=== PATIENT | female | born 1945 | race American Indian/Alaskan Native ===

== ENCOUNTER 2016-06-04 08:10 | Emergency (ER) | payer MEDICARE ==
[2016-06-04 09:24] LABS: Basophils % (Auto) 0.4 % (0.0-1.8); Eosinophils % (Auto) 2.3 % (0.0-4.3); Hematocrit 43.8 % (30.3-42.9); Hemoglobin 14.5 gm/dl (10.1-14.3); Mean Corpuscular HGB Conc 33 % (30-34); Mean Corpuscular Hemoglobin 30 pg (28-32); Mean Corpuscular Volume 90 fl (79-97); Platelet Count 156 K/mm3 (140-440); Red Blood Count 4.86 M/mm3 (3.65-5.03); Red Cell Distribution Width 13.6 % (13.2-15.2); White Blood Count 8.1 K/mm3 (4.5-11.0)
[2016-06-04 09:37] LABS: Alanine Aminotransferase 31 units/L (7-56); Albumin 3.9 g/dL (3.9-5); Alkaline Phosphatase 80 units/L (35-129); Anion Gap 20 mmol/L; Blood Urea Nitrogen 14 mg/dL (7-17); Carbon Dioxide 21 mmol/L (22-30); Chloride 101.8 mmol/L (98-107); Glucose 164 mg/dL (65-100); Lipase 61 units/L (13-60); Potassium 3.8 mmol/L (3.6-5.0); Sodium 139 mmol/L (137-145); Total Protein 7.9 g/dL (6.3-8.2)
[2016-06-04 09:50] LABS: Bilirubin,Urine NEG (Negative); Blood,Urine NEG (Negative); Ketones,Urine 20 mg/dL (Negative); Leukocyte Esterase,Urine SM (Negative); Mucus,Urine FEW /HPF; Nitrite,Urine NEG (Negative); Protein,Urine <15 mg/dL mg/dL (Negative); Urobilinogen,Urine < 2.0 mg/dL (<2.0)
[2016-06-04] MEDS ORDERED: MORPHINE IV ONE (12:33)
[2016-06-04] MEDS ORDERED: ZOFRAN IV ONE (12:33)
[2016-06-04] MEDS ORDERED: NACL 0.9% 1000 ML 1,000 ML IV ONE (12:33)
--- NOTE | 2016-06-04 12:38 | Emergency Department Report ---
ED Abdominal Pain HPI - General Chief Complaint: Abdominal Pain Stated Complaint: SEVERE ABD PAIN Time Seen by Provider: 06/04/16 12:28 Source: patient Mode of arrival: Ambulatory Limitations: No Limitations - History of Present Illness Initial Comments: 71-year-old female with a past medical history previous CVA, diabetes, GERD, multiple abdominal surgeries including hysterectomy presents to the hospital complains of abdominal pain since June 02. Pain is generalized, cramping and sharp, intermittent. A certificate intensity. Worse with palpation and with oral intake. Patient has associated nausea with mild vomiting reported yesterday. Patient has decreased by mouth intake secondary to symptoms. She only had a very small bowel movement yesterday and reports problems with chronic constipation. No reports of fever or dysuria. Patient also history of hernia repair 2 but cannot specify which hernias were repaired. PMD: Dr. Fair - Related Data Previous Rx's Medication Instructions Recorded Last Taken Type Ciprofloxacin HCl [Ciprofloxacin 500 mg PO Q12HR #14 tab 06/04/16 Unknown Rx TAB] Docusate Sodium [Colace] 100 mg PO BID PRN #20 capsule 06/04/16 Unknown Rx Promethazine [Phenergan TAB] 25 mg PO Q6HR PRN #20 tab 06/04/16 Unknown Rx metroNIDAZOLE [Flagyl] 500 mg PO Q8HR 7 Days 06/04/16 Unknown Rx traMADol [Ultram 50 MG tab] 50 mg PO Q6HR PRN #20 tablet 06/04/16 Unknown Rx Allergies Allergy/AdvReac Type Severity Reaction Status Date / Time metformin HCl AdvReac HALLUCINATI Verified 06/04/16 08:56 [From Glucophage] ONS ED Review of Systems ROS: Stated complaint: SEVERE ABD PAIN Other details as noted in HPI Comment: All other systems reviewed and negative Other: Constitutional: No fevers chills Eyes: No eye pain visual changes ENT: No ear pain or throat pain Neck: Denies pain Respiratory: Denies cough wheezing shortness of breath Cardiovascular: Denies chest pain, palpitations, syncope GI: as per hpi : Denies dysuria, urinary frequency, or urgency Musculoskeletal: Denies back pain, joint swelling Skin: Denies rash, lesions, erythema Neurologic: Denies headache, numbness, weakness Psychiatric: Denies suicidal ideation, hallucinations ED Past Medical Hx - Past Medical History Hx CVA: Yes (CVA 01-28-13) Hx Diabetes: Yes (Insulin) Hx GERD: Yes Hx Kidney Stones: Yes - Surgical History Additional Surgical History: . HERNIA REPAIR X 2. HYSTERECTOMY - Social History Smoking Status: Never Smoker Substance Use Type: None - Medications Home Medications: Home Medications Medication Instructions Recorded Confirmed Last Taken Type Ciprofloxacin HCl [Ciprofloxacin 500 mg PO Q12HR #14 tab 06/04/16 Unknown Rx TAB] Docusate Sodium [Colace] 100 mg PO BID PRN #20 capsule 06/04/16 Unknown Rx Promethazine [Phenergan TAB] 25 mg PO Q6HR PRN #20 tab 06/04/16 Unknown Rx metroNIDAZOLE [Flagyl] 500 mg PO Q8HR 7 Days 06/04/16 Unknown Rx traMADol [Ultram 50 MG tab] 50 mg PO Q6HR PRN #20 tablet 06/04/16 Unknown Rx ED Physical Exam - General Limitations: No Limitations - Other Other exam information: General: No limitations, patient is alert in no acute distress Head exam: Atraumatic, normocephalic Eyes exam: Normal appearance, pupils equal reactive to light, extraocular movements intact ENT: Moist mucous membrane, normal oropharynx Neck exam: Normal inspection, full range of motion, no meningismus nontender Respiratory exam: Clear to auscultation bilateral, no wheezes, rales, crackles Cardiovascular: Normal rate and rhythm, normal heart sounds Abdomen: Soft, nondistended, increased bowel signs, generalized tenderness greatest at the left lower and right lower quadrant. No rebound or guarding Extremity: Full range of motion normal inspection no deformity Back: Normal Inspection, full range of motion, no tenderness Neurologic: Alert, oriented x3, cranial nerves intact, no motor or sensory deficit Psychiatric: normal affect, normal mood Skin: Warm, dry, intact ED Course Vital Signs 06/04/16 06/04/16 06/04/16 08:49 12:45 13:01 Temperature 99.2 F Pulse Rate 104 H 89 Respiratory 17 16 18 Rate Blood Pressure 134/76 Blood Pressure 112/60 [Right] O2 Sat by Pulse 98 99 Oximetry 06/04/16 13:52 Temperature 98.3 F Pulse Rate 89 Respiratory 18 Rate Blood Pressure Blood Pressure 115/68 [Right] O2 Sat by Pulse 97 Oximetry - Reevaluation(s) Reevaluation #1: 06/04/16 12:37 Morphine, Zofran, normal saline and CT ordered Reevaluation #2: 06/04/16 14:32 Pt feeling better with ED treatment - Consultations Consultation #1: 06/04/16 14:32 case d/w Dr quirino RAMESH. Rec cipro/flagyl Consultation #2: 06/04/16 14:59 Dr Fair informed of pt update and informed pt will f/u in office ED Medical Decision Making - Lab Data Result diagrams: 06/04/16 09:04 06/04/16 09:04 Lab Results 06/04/16 06/04/16 06/04/16 Range/Units 08:58 09:04 09:04 WBC 8.1 (4.5-11.0) K/mm3 RBC 4.86 (3.65-5.03) M/mm3 Hgb 14.5 H (10.1-14.3) gm/dl Hct 43.8 H (30.3-42.9) % MCV 90 (79-97) fl MCH 30 (28-32) pg MCHC 33 (30-34) % RDW 13.6 (13.2-15.2) % Plt Count 156 (140-440) K/mm3 Lymph % (Auto) 15.4 (13.4-35.0) % [place] % (Auto) 10.6 H (0.0-7.3) % Eos % (Auto) 2.3 (0.0-4.3) % Baso % (Auto) 0.4 (0.0-1.8) % Lymph # 1.3 (1.2-5.4) K/mm3 [place] # 0.9 H (0.0-0.8) K/mm3 Eos # 0.2 (0.0-0.4) K/mm3 Baso # 0.0 (0.0-0.1) K/mm3 Seg Neutrophils % 71.3 H (40.0-70.0) % Seg Neutrophils # 5.8 (1.8-7.7) K/mm3 Sodium 139 (137-145) mmol/L Potassium 3.8 (3.6-5.0) mmol/L Chloride 101.8 (98-107) mmol/L Carbon Dioxide 21 L (22-30) mmol/L Anion Gap 20 mmol/L BUN 14 (7-17) mg/dL Creatinine 0.8 (0.7-1.2) mg/dL Estimated GFR > 60 ml/min BUN/Creatinine Ratio 17.50 % Glucose 164 H (65-100) mg/dL POC Glucose 162 H (70-105) Calcium 9.0 (8.4-10.2) mg/dL Total Bilirubin 1.0 (0.1-1.2) mg/dL AST 39 (5-40) units/L ALT 31 (7-56) units/L Alkaline Phosphatase 80 (35-129) units/L Total Protein 7.9 (6.3-8.2) g/dL Albumin 3.9 (3.9-5) g/dL Albumin/Globulin Ratio 1.0 % Lipase 61 H (13-60) units/L Urine Color (Yellow) Urine Turbidity (Clear) Urine pH (5.0-7.0) Ur Specific [place] (1.003-1.030) Urine Protein (Negative) mg/dL Urine Glucose (UA) (Negative) mg/dL Urine Ketones (Negative) mg/dL Urine Blood (Negative) Urine Nitrite (Negative) Urine Bilirubin (Negative) Urine Urobilinogen (<2.0) mg/dL Ur Leukocyte Esterase (Negative) Urine WBC (Auto) (0.0-6.0) /HPF Urine RBC (Auto) (0.0-6.0) /HPF U Epithel Cells (Auto) (0-13.0) /HPF Urine Mucus /HPF Urine Yeast (Budding) /HPF 06/04/16 Range/Units 09:34 WBC (4.5-11.0) K/mm3 RBC (3.65-5.03) M/mm3 Hgb (10.1-14.3) gm/dl Hct (30.3-42.9) % MCV (79-97) fl MCH (28-32) pg MCHC (30-34) % RDW (13.2-15.2) % Plt Count (140-440) K/mm3 Lymph % (Auto) (13.4-35.0) % [place] % (Auto) (0.0-7.3) % Eos % (Auto) (0.0-4.3) % Baso % (Auto) (0.0-1.8) % Lymph # (1.2-5.4) K/mm3 [place] # (0.0-0.8) K/mm3 Eos # (0.0-0.4) K/mm3 Baso # (0.0-0.1) K/mm3 Seg Neutrophils % (40.0-70.0) % Seg Neutrophils # (1.8-7.7) K/mm3 Sodium (137-145) mmol/L Potassium (3.6-5.0) mmol/L Chloride (98-107) mmol/L Carbon Dioxide (22-30) mmol/L Anion Gap mmol/L BUN (7-17) mg/dL Creatinine (0.7-1.2) mg/dL Estimated GFR ml/min BUN/Creatinine Ratio % Glucose (65-100) mg/dL POC Glucose (70-105) Calcium (8.4-10.2) mg/dL Total Bilirubin (0.1-1.2) mg/dL AST (5-40) units/L ALT (7-56) units/L Alkaline Phosphatase (35-129) units/L Total Protein (6.3-8.2) g/dL Albumin (3.9-5) g/dL Albumin/Globulin Ratio % Lipase (13-60) units/L Urine Color Yellow (Yellow) Urine Turbidity Clear (Clear) Urine pH 5.0 (5.0-7.0) Ur Specific [place] 1.030 (1.003-1.030) Urine Protein <15 mg/dl (Negative) mg/dL Urine Glucose (UA) 150 (Negative) mg/dL Urine Ketones 20 (Negative) mg/dL Urine Blood Neg (Negative) Urine Nitrite Neg (Negative) Urine Bilirubin Neg (Negative) Urine Urobilinogen < 2.0 (<2.0) mg/dL Ur Leukocyte Esterase Sm (Negative) Urine WBC (Auto) 7.0 H (0.0-6.0) /HPF Urine RBC (Auto) 4.0 (0.0-6.0) /HPF U Epithel Cells (Auto) 5.0 (0-13.0) /HPF Urine Mucus Few /HPF Urine Yeast (Budding) Few /HPF - Radiology Data Radiology results: report reviewed (ct abd pelvis IV: findings of nonspecific colitis) - Medical Decision Making No surgical emergency identified. Patient was discharged home with antibiotics and symptomatic treatment since she is tolerating by mouth he does not have significant leukocytosis or fever. - Differential Diagnosis diverticulitis, obstruction, appendicitis, gastritis, constipation Critical Care Time: No Critical care attestation.: If time is entered above; I have spent that time in minutes in the direct care of this critically ill patient, excluding procedure time. ED Disposition Clinical Impression: Nonspecific colitis Abdominal pain Qualifiers: Abdominal location: generalized Qualified Code(s): R10.84 - Generalized abdominal pain Disposition: DISCHARGED TO HOME OR SELFCARE Is pt being admited?: No Does the pt Need Aspirin: No Condition: Stable Instructions: Abdominal Pain (ED), Infectious Colitis (ED) Additional Instructions: Take the medication as prescribed. Return if symptoms worsen as indicated on your discharge instructions Prescriptions: Ciprofloxacin HCl [Ciprofloxacin TAB] 500 mg PO Q12HR #14 tab Docusate Sodium [Colace] 100 mg PO BID PRN #20 capsule PRN Reason: Constipation Promethazine [Phenergan TAB] 25 mg PO Q6HR PRN #20 tab PRN Reason: Nausea metroNIDAZOLE [Flagyl] 500 mg PO Q8HR 7 Days traMADol [Ultram 50 MG tab] 50 mg PO Q6HR PRN #20 tablet PRN Reason: Pain Referrals: MIA FAIR MD [Primary Care Provider] - 2-3 Days Time of Disposition: 15:14
[2016-06-04] MEDS ORDERED: NACL ONE (13:22)
[2016-06-04 13:53] VITALS: BP 115/68
--- NOTE | 2016-06-04 14:06 | Cat Scan Report ---
CT SCAN OF THE ABDOMEN AND PELVIS WITH CONTRAST: HISTORY: Abdominal pain. TECHNIQUE: Helical CT in 1.25mm intervals following IV contrast. Sagittal and coronal reconstructions. FINDINGS: There is moderate circumferential thickening of the ascending colon and transverse colon. This has the appearance of a nonspecific colitis. The stomach, small bowel loops, appendix and distal colon are unremarkable. Scattered diverticula are noted. Normal liver, biliary system, pancreas, spleen, kidneys and left adrenal gland. A well marginated 2.1 cm enhancing nodule is noted in the right adrenal gland. This is unchanged since 07/14/12 CT chest. Hysterectomy changes are noted. No adnexal cyst or mass. No ascites. The aorta is normal caliber. Heart size is normal. The visualized lung bases are clear. No acute bony abnormality. IMPRESSION: Findings consistent with a nonspecific colitis.
[2016-06-04] MEDS ORDERED: LEVAQUIN PO ONE (14:30)
[2016-06-04] MEDS ORDERED: FLAGYL PO ONE (14:30)
== END 2016-06-04 15:20 | disposition home or self-care (01) ==
LOC: ED 08:10
DX: K52.89 Other specified noninfective gastroenteritis and colitis (principal); I63.9 Cerebral infarction, unspecified; K21.9 Gastro-esophageal reflux disease without esophagitis; E11.9 Type 2 diabetes mellitus without complications; Z79.82 Long term (current) use of aspirin; Z88.8 Allergy status to other drugs, medicaments and biological substances
CPT/HCPCS: 36415; 74177; 80053; 81001; 82962; 83690; 85025; 96361; 96374; 96375; 99284; J2270; J2405; J7030; Q9967

== ENCOUNTER 2016-06-06 10:44 | Inpatient (IN) | payer MEDICARE ==
[2016-06-06] MEDS ORDERED: D50W (25GM) IV PRN (11:36)
[2016-06-06] MEDS: PROTONIX IV SCH ×2 (13:44→21:01)
--- NOTE | 2016-06-06 13:57 | Ultrasound Report ---
Sonogram right upper quadrant: History: Abdominal pain. Findings: Aortic diameter 1.8 cm. The gallbladder wall thickness 2.7 mm. Sludge in the gallbladder. No calculi. No pericholecystic fluid. Common bile duct diameter 5 mm. No intrahepatic duct dilatation. Fatty liver. Right kidney 9.2 x 5 x 5.5 cm. Cortical thickness is 1.4 cm. No mass. No hydronephrosis. Pancreas appears normal. Impression: Fatty liver. Sludge in the gallbladder.
[2016-06-06 14:15] LABS: Basophils % (Auto) 0.4 % (0.0-1.8); Eosinophils % (Auto) 7.2 % (0.0-4.3); Hematocrit 40.5 % (30.3-42.9); Hemoglobin 13.4 gm/dl (10.1-14.3); Mean Corpuscular HGB Conc 33 % (30-34); Mean Corpuscular Hemoglobin 30 pg (28-32); Mean Corpuscular Volume 91 fl (79-97); Platelet Count 159 K/mm3 (140-440); Red Blood Count 4.43 M/mm3 (3.65-5.03); Red Cell Distribution Width 13.8 % (13.2-15.2); White Blood Count 6.2 K/mm3 (4.5-11.0)
[2016-06-06] MEDS: LOVENOX SUB-Q SCH (15:06)
[2016-06-06 16:02] LABS: Amylase 81 units/L (27-131); Lipase 67 units/L (13-60)
[2016-06-06 16:06] LABS: Alanine Aminotransferase 26 units/L (7-56); Albumin 3.8 g/dL (3.9-5); Albumin/Globulin Ratio 1.3 %; Alkaline Phosphatase 71 units/L (35-129); BUN/Creatinine Ratio 13.75; Bilirubin,Total 0.5 mg/dL (0.1-1.2); Blood Urea Nitrogen 11 mg/dL (7-17); Calcium 8.7 mg/dL (8.4-10.2); Carbon Dioxide 23 mmol/L (22-30); Chloride 104.3 mmol/L (98-107); Glucose 136 mg/dL (65-100); Potassium 3.9 mmol/L (3.6-5.0); Sodium 142 mmol/L (137-145); Total Protein 6.7 g/dL (6.3-8.2)
[2016-06-06 16:19] LABS: Anion Gap 19 mmol/L
--- NOTE | 2016-06-06 17:22 | History and Physical Report ---
History of Present Illness Date of examination: 06/06/16 Date of admission: 06/06/16 11:35 Chief complaint: Abdominal pain, nausea vomiting, fever and chills History of present illness: Patient is 71-year-old lady was a history of diabetes mellitus, cerebrovascular accident with right hemiparesis who started having abdominal discomfort one week ago. It became progressively worse 3 days ago. Came to the emergency department on 06/04/[address] scan of the abdomen and pelvis were remarkable for nonspecific colitis. Patient had episodes of nausea vomiting 3 since onset of symptoms. Had low-grade fever. Had initial diarrhea but now constipated. Last bowel movement was 3 days ago. Patient presented to the office today with worsening abdominal pain. There was tenderness more in the epigastrium and right upper quadrant. Had low-grade fever of 99. The pt was directly admitted to the hospital. Gallbladder ultrasound shows gallbladder sludge. Blood sugar was minimally elevated on this admission. Past History Past Medical History: hypertension, hyperlipidemia, stroke Past Surgical History: denies: No surgical history Social history: denies: smoking, alcohol abuse, prescription drug abuse, IV drug use Family history: denies: no significant family history Medications and Allergies Allergies Allergy/AdvReac Type Severity Reaction Status Date / Time metformin HCl AdvReac HALLUCINATI Verified 06/04/16 08:56 [From Glucophage] ONS Home Medications Medication Instructions Recorded Confirmed Last Taken Type Ciprofloxacin HCl [Ciprofloxacin 500 mg PO Q12HR #14 tab 06/04/16 06/06/16 07: 00 Rx TAB] Docusate Sodium [Colace] 100 mg PO BID PRN #20 capsule 06/04/16 06/06/16 07:00 Rx Promethazine [Phenergan TAB] 25 mg PO Q6HR PRN #20 tab 06/04/16 06/06/16 07:00 Rx metroNIDAZOLE [Flagyl] 500 mg PO Q8HR 7 Days 06/04/16 06/06/16 07:00 Rx traMADol [Ultram 50 MG tab] 50 mg PO Q6HR PRN #20 tablet 06/04/16 06/06/1606/06 07:00 Rx Canagliflozin (Nf) [Invokana (Nf)] 06/06/16 06/04/16 13:00 History Cilostazol [Pletal] 06/06/16 06/05/16 07:00 History Rosuvastatin (Nf) [Crestor] 06/06/16 06/05/16 21:00 History Active Meds: Active Medications Dextrose (D50w (25gm)) 50 ml IV PRN PRN PRN Reason: Hypoglycemia Enoxaparin Sodium (Lovenox) 40 mg SUB-Q QDAY [facility] Last Admin: 06/06/16 15:06 Dose: 40 mg Insulin Aspart (Novolog) 0 units SUB-Q ACHS [facility] PRN Reason: Protocol Pantoprazole Sodium (Protonix) 40 mg IV BID [facility] Stop: 06/09/16 11:59 Last Admin: 06/06/16 13:44 Dose: 40 mg Review of Systems Constitutional: no weight loss, no weight gain, no anorexia Ears, nose, mouth and throat: no ear pain, no ear discharge Cardiovascular: no chest pain, no orthopnea, no palpitations, no rapid/ irregular heart beat Respiratory: no cough, no cough with sputum, no excessive sputum, no hemoptysis Gastrointestinal: abdominal pain, nausea, vomiting, constipation Musculoskeletal: no neck stiffness, no neck pain, no shooting arm pain, no arm numbness/tingling Integumentary: no rash, no pruritis, no redness Neurological: no head injury, no transient paralysis, no paralysis, no weakness , no parathesias, no numbness Psychiatric: hallucinations, no anxiety, no memory loss, no change in sleep habits, no insomnia Endocrine: no cold intolerance, no heat intolerance, no polyphagia, no excessive thirst, no polydipsia Hematologic/Lymphatic: no easy bruising, no easy bleeding Allergic/Immunologic: no urticaria, no allergic rhinitis Exam - Constitutional Vitals: Temp Pulse Resp BP Pulse Ox 99.1 F 82 18 119/63 06/06/16 16:54 06/06/16 16:54 06/06/16 16:54 06/06/16 16:54 General appearance: Present: no acute distress, well-nourished - EENT Eyes: Present: PERRL ENT: hearing intact, clear oral mucosa - Neck Neck: Present: supple, normal ROM - Respiratory Respiratory effort: normal Respiratory: bilateral: CTA - Cardiovascular Heart Sounds: Present: S1 & S2. Absent: rub, click - Extremities Extremities: pulses symmetrical, No edema Peripheral Pulses: within normal limits - Abdominal General gastrointestinal: Present: soft, tender, normal bowel sounds Female genitourinary: Present: normal - Integumentary Integumentary: Present: clear, warm, dry - Musculoskeletal Musculoskeletal: gait normal, strength equal bilaterally - Psychiatric Psychiatric: appropriate mood/affect, intact judgment & insight - Neurologic Neurologic: CNII-XII intact, moves all extremities Results - Labs CBC & Chem 7: 06/06/16 13:45 06/06/16 14:46 Labs: Abnormal lab results 06/06/16 06/06/16 06/06/16 Range/Units 13:45 14:46 14:46 [place] % (Auto) 11.8 H (0.0-7.3) % Eos % (Auto) 7.2 H (0.0-4.3) % Glucose 136 H (65-100) mg/dL Albumin 3.8 L (3.9-5) g/dL Lipase 67 H (13-60) units/L Assessment and Plan - Patient Problems (1) Abdominal pain Diagnosis Date: 06/06/16 Current Visit: No Status: Acute Qualifiers: Abdominal location: generalized Qualified Code(s): R10.84 - Generalized abdominal pain Plan to address problem: Epigastric pain, likely from gallbladder disease as patient has a gallbladder sludge (2) Nonspecific colitis Diagnosis Date: 06/06/16 Current Visit: No Status: Acute Plan to address problem: Is started. However we'll place the patient on nothing by mouth obtain GI consult. Commence patient on IV 2. IV Levaquin and by mouth Flagyl (3) Gallbladder sludge Diagnosis Date: 06/06/16 Current Visit: Yes Status: Acute Plan to address problem: Pulmonary ultrasound patient has gallbladder sludge. This may be responsible for upper abdominal pain (4) Diabetes 1.5, managed as type 2 Diagnosis Date: 06/06/16 Current Visit: Yes Status: Acute Plan to address problem: Sliding-scale insulin. ADA diet when fully commenced on oral diet
[2016-06-06] MEDS: LEVAQUIN 500MG/100ML 100 ML IV SCH (21:00)
[2016-06-06] MEDS: FLAGYL PO SCH (21:01)
[2016-06-06] MEDS: NOVOLOG SUB-Q SCH (22:03)
[2016-06-07 05:23] LABS: Basophils % (Auto) 0.5 % (0.0-1.8); Eosinophils % (Auto) 7.5 % (0.0-4.3); Hematocrit 35.7 % (30.3-42.9); Hemoglobin 11.9 gm/dl (10.1-14.3); Mean Corpuscular HGB Conc 33 % (30-34); Mean Corpuscular Hemoglobin 30 pg (28-32); Mean Corpuscular Volume 89 fl (79-97); Platelet Count 147 K/mm3 (140-440); Red Cell Distribution Width 13.4 % (13.2-15.2); White Blood Count 5.3 K/mm3 (4.5-11.0)
[2016-06-07 05:40] LABS: Alanine Aminotransferase 26 units/L (7-56); Albumin 3.3 g/dL (3.9-5); Albumin/Globulin Ratio 1.2 %; Alkaline Phosphatase 62 units/L (35-129); Anion Gap 17 mmol/L; BUN/Creatinine Ratio 12.85; Bilirubin,Total 0.5 mg/dL (0.1-1.2); Blood Urea Nitrogen 9 mg/dL (7-17); Calcium 8.1 mg/dL (8.4-10.2); Carbon Dioxide 23 mmol/L (22-30); Chloride 106.9 mmol/L (98-107); Glucose 98 mg/dL (65-100); Potassium 3.4 mmol/L (3.6-5.0); Sodium 143 mmol/L (137-145); Total Protein 6.1 g/dL (6.3-8.2)
[2016-06-07] MEDS: FLAGYL PO SCH ×3 (05:40→22:17)
[2016-06-07] MEDS: D5NS0.3 1,000 ML IV SCH ×2 (07:58→22:15)
[2016-06-07] MEDS: NOVOLOG SUB-Q SCH ×3 (07:59→22:18)
--- NOTE | 2016-06-07 09:09 | Progress Note ---
Assessment and Plan 1. Acute epigastric abdominal pain: Clear liquids only. iv Protonic 2. Nonspecific Colitis per CT of 06/04/16: IV levquin and po flagyl. GI consult 3. Gallbalder sludge: amanda get HIDA scan. Surgical consult 4. T2DM: SSI. Consitend carbohydrate diet 5. DVT Ppx: with lovenox - Patient Problems (1) Abdominal pain Diagnosis Date: 06/06/16 Current Visit: No Status: Acute Qualifiers: Abdominal location: generalized Qualified Code(s): R10.84 - Generalized abdominal pain (2) Nonspecific colitis Diagnosis Date: 06/06/16 Current Visit: No Status: Acute (3) Gallbladder sludge Diagnosis Date: 06/06/16 Current Visit: Yes Status: Acute (4) Diabetes 1.5, managed as type 2 Diagnosis Date: 06/06/16 Current Visit: Yes Status: Acute Subjective Date of service: 06/07/16 Principal diagnosis: acute abdominal pain, cholocyctitis Interval history: abdominal pain getting better Objective - Constitutional Vitals: Vital Signs - 12hr 06/07/16 06/07/16 00:00 08:00 Temperature 98.6 F 98.1 F Pulse Rate [ 86 74 Right] Respiratory 18 20 Rate Blood Pressure 124/62 126/66 [Left Arm] O2 Sat by Pulse 97 Oximetry General appearance: Present: no acute distress, well-nourished - EENT Eyes: PERRL, EOM intact ENT: hearing intact, clear oral mucosa Ears: bilateral: normal - Neck Neck: supple, normal ROM - Respiratory Respiratory effort: normal Respiratory: bilateral: CTA - Breasts Breasts: normal - Cardiovascular Rhythm: regular Heart Sounds: Present: S1 & S2. Absent: gallop, rub Extremities: pulses intact, No edema, normal color, Full ROM - Gastrointestinal General gastrointestinal: Present: soft, tender, non-distended, normal bowel sounds - Genitourinary Female genitourinary: normal - Integumentary Integumentary: clear, warm, dry - Musculoskeletal Musculoskeletal: 1, strength equal bilaterally - Neurologic Neurologic: moves all extremities - Psychiatric Psychiatric: memory intact, appropriate mood/affect, intact judgment & insight - Labs CBC & Chem 7: 06/07/16 04:45 06/07/16 04:45 Labs: Abnormal lab results 06/06/16 06/06/16 06/06/16 Range/Units 13:45 14:46 14:46 [place] % (Auto) 11.8 H (0.0-7.3) % Eos % (Auto) 7.2 H (0.0-4.3) % Potassium (3.6-5.0) mmol/L Glucose 136 H (65-100) mg/dL POC Glucose (70-105) Calcium (8.4-10.2) mg/dL Total Protein (6.3-8.2) g/dL Albumin 3.8 L (3.9-5) g/dL Lipase 67 H (13-60) units/L 06/06/16 06/07/16 06/07/16 Range/Units 21:00 04:45 04:45 [place] % (Auto) 15.8 H (0.0-7.3) % Eos % (Auto) 7.5 H (0.0-4.3) % Potassium 3.4 L (3.6-5.0) mmol/L Glucose (65-100) mg/dL POC Glucose 132 H (70-105) Calcium 8.1 L (8.4-10.2) mg/dL Total Protein 6.1 L (6.3-8.2) g/dL Albumin 3.3 L (3.9-5) g/dL Lipase (13-60) units/L
--- NOTE | 2016-06-07 09:15 | Admit Criteria Form ---
Admission Criteria Documentation: ABDOMINAL PAIN Clinical Indications for Admission to Inpatient Care (Place 'X' for any and all applicable criteria): Admission is indicated for ANY ONE of the following(1)(2)(3)(4)(5): [X]I. Inpatient admission required rather than observation care (Also use Abdominal Pain: Observation Care, as appropriate) because of ANY ONE of the following: [X ]a) Severe pain requiring acute inpatient management [X ]b) Identification of etiology/finding that requires inpatient care (eg, aortic dissection, free air) [ ]c) Absent bowel sounds with complete ileus(6) [ ]d) Suspected toxic megacolon [ ]e) Severe electrolyte abnormalities requiring inpatient care [ ]f) High fever or infection requiring inpatient admission as indicated by ANY ONE of following(7)(8): [ ] i) Appropriate outpatient or observational care antimicrobial treatment unavailable, not effective, or not feasible [ ] ii) Documented bacteremia [ ] iii) Temperature > 104.9 degrees F (oral) [ ] iv) T >103.1 F (oral) or < 96.8 F(rectal) that does not respond to all emergency treatment measures [ ]g) Signs of intestinal obstruction [B] [ ]h) Hemodynamic instability [ ]i) IV fluid to replace significant ongoing losses (greater than 3 L/m2 per day) (12)(13) [ ]j) Percutaneous or open drainage (eg, abscess, biliary tract ) procedures [ ]k) Parenteral nutrition regimen that must be implemented on inpatient basis [ ]l) Other condition,treatment or monitoring requiring inpatient admission. [ ]II. Peritoneal signs present [ ]III. Surgery needed that cannot be performed on an ambulatory basis. [ ]IV. Evaluation requires patient to not eat or drink for extended period ( eg, more than 24 hours). [ ]V. Contraindications and/or Inappropriate clinical situations for Observational Care in patients with abdominal pain, when ANY ONE of the following is required: [ ]a) Thorough evaluation is required to prevent catastrophic events due to delays in diagnosing (e.g.Mesenteric ischemia) 1,3 [ ]b) Patient with severe pathology or with chronic symptoms unlikely to improve in the ED stay (3) [ ]. General contraindications and/or Inappropriate clinical situations for Observational Care in patients with abdominal pain, when ANY ONE of the following is required: [ ]a) Prediction of prolongation of LOS based on ANY ONE of the following may be considered as a contraindication for observational care 2, 3, 4, 5, 6, 7, 8, 9, 10, 11 [ ]i) Age > 65 yrs. [ ]ii) Patient arriving by ambulance [ ]iii) Patient with high acuity [ ]iv) Patient requiring vital sign monitoring [ ]v) Patient on IV medication [ ]b) Systolic blood pressures 180mmHg 3,12 [ ]c) Patient with altered mental status including delirium and other alteration of consciousness, (3) [ ]d) Patient whose discharge disposition will be to a intermediate home or rehabilitation home should not be managed in Emergency Department Observation Unit. CMS rule requires 3 days hospital stay before such placement.3,13 [ ]e) Patient with failure to thrive due to broad array of etiologies 3,16,17 [ ]f) Inability to ambulate 3,14 Extended stay beyond goal length of stay may be needed for(2)(3): [ ]a) Persistent abdominal pain with suspected intra-abdominal process [ ]b) Diagnosed condition requiring continued stay (e.g., pancreatitis, complicated diverticulitis) [ ]c) Surgery (e.g., colectomy) The original [facility] content created by [employer] has been revised. The portions of the content which have been revised are identified through the use of italic text or in bold, and [facility] has neither reviewed nor approved the modified material.All other unmodified content is copyright [facility]. Please see references footnoted in the original [facility] edition 2016 Admission Criteria Met: Yes
[2016-06-07] MEDS: LEVAQUIN 500MG/100ML 100 ML IV SCH (09:56)
[2016-06-07] MEDS: PROTONIX IV SCH ×2 (09:56→22:17)
[2016-06-07] MEDS: LOVENOX SUB-Q SCH (09:57)
--- NOTE | 2016-06-07 11:12 | Consultation ---
History of Present Illness Consult date: 06/07/16 Reason for consult: other (Gallbladder sludge) Chief complaint: Abdominal pain. - History of present illness History of present illness: 8 digital female admitted to the hospital because of abdominal pain. A CT of the abdomen showed ascending colitis. The patient reports that she has been having some abdominal pain nausea vomiting diarrhea on and off for the last 2 weeks. The gallbladder ultrasound also showed sludge in this is the reason for our consultation. Past History Past Medical History: hypertension, hyperlipidemia, stroke Past Surgical History: , hysterectomy, Other (incisional herniorrhaphy. ) Social history: denies: smoking, alcohol abuse, prescription drug abuse, IV drug use Family history: denies: no significant family history Medications and Allergies Allergies Allergy/AdvReac Type Severity Reaction Status Date / Time metformin HCl AdvReac HALLUCINATI Verified 06/04/16 08:56 [From Glucophage] ONS Home Medications Medication Instructions Recorded Confirmed Last Taken Type Ciprofloxacin HCl [Ciprofloxacin 500 mg PO Q12HR #14 tab 06/04/16 06/06/16 07: 00 Rx TAB] Docusate Sodium [Colace] 100 mg PO BID PRN #20 capsule 06/04/16 06/06/16 07:00 Rx Promethazine [Phenergan TAB] 25 mg PO Q6HR PRN #20 tab 06/04/16 06/06/16 07:00 Rx metroNIDAZOLE [Flagyl] 500 mg PO Q8HR 7 Days 06/04/16 06/06/16 07:00 Rx traMADol [Ultram 50 MG tab] 50 mg PO Q6HR PRN #20 tablet 06/04/16 06/06/1606/06 07:00 Rx Canagliflozin (Nf) [Invokana (Nf)] 06/06/16 06/04/16 13:00 History Cilostazol [Pletal] 06/06/16 06/05/16 07:00 History Rosuvastatin (Nf) [Crestor] 06/06/16 06/05/16 21:00 History Active Meds: Active Medications Dextrose (D50w (25gm)) 50 ml IV PRN PRN PRN Reason: Hypoglycemia Enoxaparin Sodium (Lovenox) 40 mg SUB-Q QDAY [place] Last Admin: 06/07/16 09:57 Dose: 40 mg Dextrose/Sodium Chloride (D5ns0.3) 1,000 mls @ 100 mls/hr IV DIRECT [facility] Last Admin: 06/07/16 07:58 Dose: 100 mls/hr Levofloxacin/Dextrose (Levaquin 500mg/100ml) 100 mls @ 100 mls/hr IV Q24HR [place] PRN Reason: Protocol Last Admin: 06/07/16 09:56 Dose: 100 mls/hr Potassium Chloride (Kcl 10meq/100ml) 100 mls @ 100 mls/hr IV Q1H [facility] Stop: 06/07/16 14:59 Insulin Aspart (Novolog) 0 units SUB-Q ACHS [place] PRN Reason: Protocol Last Admin: 06/07/16 07:59 Dose: Not Given Metronidazole (Flagyl) 500 mg PO Q8HR [facility] Last Admin: 06/07/16 05:40 Dose: 500 mg Morphine Sulfate (Morphine) 2 mg IV Q4H PRN PRN Reason: Pain, Moderate (4-6) Pantoprazole Sodium (Protonix) 40 mg IV BID [facility] Stop: 06/09/16 11:59 Last Admin: 06/07/16 09:56 Dose: 40 mg Review of Systems All systems: negative (present complaint) Exam Vital Signs Temp Pulse Resp BP 99.1 F 82 18 119/63 06/06/16 16:54 06/06/16 16:54 06/06/16 16:54 06/06/16 16:54 - General physical appearance Positive: well developed, well nourished, no distress, obese - Eyes Positive: PERRL, normal occular movement - ENT Positive: normal mucosa, no hearing loss, no congestion - Neck Positive: no masses, no bruits, trachea midline, no venous distension - Respiratory Positive: normal expansion, normal respiratory effort, clear to auscultation - Cardiovascular Rhythm: regular Heart Sounds: Present: S1 & S2. Absent: rub, click - Extremities Extremities: no ischemia, No edema - Breasts Breasts: deferred - Abdomen Abdomen: Present: soft, tender (right hypochondrium), bowel sounds normal - Genitourinary Female Genitourinary: deferred - Integumentary no rash, no growths, no abnormal pigmentation - Neurologic Neurologic: alert and oriented to time, place and person - Musculoskeletal normal gait, normal posture Results - Labs 06/07/16 04:45 06/07/16 04:45 Abnormal lab results 06/06/16 06/06/16 06/06/16 Range/Units 13:45 14:46 14:46 Crane % (Auto) 11.8 H (0.0-7.3) % Eos % (Auto) 7.2 H (0.0-4.3) % Potassium (3.6-5.0) mmol/L Glucose 136 H (65-100) mg/dL POC Glucose (70-105) Calcium (8.4-10.2) mg/dL Total Protein (6.3-8.2) g/dL Albumin 3.8 L (3.9-5) g/dL Lipase 67 H (13-60) units/L 06/06/16 06/07/16 06/07/16 Range/Units 21:00 04:45 04:45 Crane % (Auto) 15.8 H (0.0-7.3) % Eos % (Auto) 7.5 H (0.0-4.3) % Potassium 3.4 L (3.6-5.0) mmol/L Glucose (65-100) mg/dL POC Glucose 132 H (70-105) Calcium 8.1 L (8.4-10.2) mg/dL Total Protein 6.1 L (6.3-8.2) g/dL Albumin 3.3 L (3.9-5) g/dL Lipase (13-60) units/L Diabetes panel 06/06/16 06/07/16 Range/Units 14:46 04:45 Sodium 142 143 (137-145) mmol/L Potassium 3.9 3.4 L (3.6-5.0) mmol/L Chloride 104.3 106.9 (98-107) mmol/L Carbon Dioxide 23 23 (22-30) mmol/L BUN 11 9 (7-17) mg/dL Creatinine 0.8 0.7 (0.7-1.2) mg/dL Glucose 136 H 98 (65-100) mg/dL Calcium 8.7 8.1 L (8.4-10.2) mg/dL AST 30 28 (5-40) units/L ALT 26 26 (7-56) units/L Alkaline Phosphatase 71 62 (35-129) units/L Total Protein 6.7 6.1 L (6.3-8.2) g/dL Albumin 3.8 L 3.3 L (3.9-5) g/dL Calcium panel 06/06/16 06/07/16 Range/Units 14:46 04:45 Calcium 8.7 8.1 L (8.4-10.2) mg/dL Albumin 3.8 L 3.3 L (3.9-5) g/dL Pituitary panel 06/06/16 06/07/16 Range/Units 14:46 04:45 Sodium 142 143 (137-145) mmol/L Potassium 3.9 3.4 L (3.6-5.0) mmol/L Chloride 104.3 106.9 (98-107) mmol/L Carbon Dioxide 23 23 (22-30) mmol/L BUN 11 9 (7-17) mg/dL Creatinine 0.8 0.7 (0.7-1.2) mg/dL Glucose 136 H 98 (65-100) mg/dL Calcium 8.7 8.1 L (8.4-10.2) mg/dL Adrenal panel 06/06/16 06/07/16 Range/Units 14:46 04:45 Sodium 142 143 (137-145) mmol/L Potassium 3.9 3.4 L (3.6-5.0) mmol/L Chloride 104.3 106.9 (98-107) mmol/L Carbon Dioxide 23 23 (22-30) mmol/L BUN 11 9 (7-17) mg/dL Creatinine 0.8 0.7 (0.7-1.2) mg/dL Glucose 136 H 98 (65-100) mg/dL Calcium 8.7 8.1 L (8.4-10.2) mg/dL Total Bilirubin 0.5 0.5 (0.1-1.2) mg/dL AST 30 28 (5-40) units/L ALT 26 26 (7-56) units/L Alkaline Phosphatase 71 62 (35-129) units/L Total Protein 6.7 6.1 L (6.3-8.2) g/dL Albumin 3.8 L 3.3 L (3.9-5) g/dL - Imaging CT scan - abdomen: report reviewed, image reviewed US - abdomen: report reviewed, image reviewed Assessment and Plan Impression: #1. Ascending colitis. #2. Gallbladder sludge but I do not think this is the cause of her pain. Recommendations: Agree with a GI consult. Medical management of the ascending colitis. A HIDA scan is not absolutely necessary at this time but will help to rule out cystic duct obstruction which is very, very doubtful.
[2016-06-07] MEDS: KCL 10MEQ/100ML 100 ML IV SCH ×4 (11:49→16:49)
[2016-06-08] MEDS: FLAGYL PO SCH ×3 (06:29→22:36)
[2016-06-08 07:04] LABS: Basophils % (Auto) 0.7 % (0.0-1.8); Eosinophils % (Auto) 6.9 % (0.0-4.3); Hematocrit 35.7 % (30.3-42.9); Mean Corpuscular HGB Conc 34 % (30-34); Mean Corpuscular Hemoglobin 30 pg (28-32); Mean Corpuscular Volume 89 fl (79-97); Platelet Count 139 K/mm3 (140-440); Red Blood Count 4.03 M/mm3 (3.65-5.03); Red Cell Distribution Width 13.5 % (13.2-15.2); White Blood Count 4.1 K/mm3 (4.5-11.0)
[2016-06-08 07:06] LABS: Alanine Aminotransferase 29 units/L (7-56); Albumin 3.3 g/dL (3.9-5); Albumin/Globulin Ratio 1.1 %; Alkaline Phosphatase 62 units/L (35-129); Anion Gap 15 mmol/L; BUN/Creatinine Ratio 7.14; Bilirubin,Total 0.5 mg/dL (0.1-1.2); Blood Urea Nitrogen 5 mg/dL (7-17); Calcium 8.5 mg/dL (8.4-10.2); Carbon Dioxide 22 mmol/L (22-30); Chloride 108.8 mmol/L (98-107); Glucose 186 mg/dL (65-100); Potassium 3.8 mmol/L (3.6-5.0); Sodium 142 mmol/L (137-145); Total Protein 6.3 g/dL (6.3-8.2)
[2016-06-08] MEDS: NOVOLOG SUB-Q SCH ×6 (07:45→16:30)
--- NOTE | 2016-06-08 08:19 | Gastroenterology Consultation ---
<JOSE L ORTEGA NUBIA - Last Filed: 06/08/16 08:20> History of Present Illness - Reason for Consult Consult date: 06/08/16 colitis Requesting physician: MIA FAIR - History of Present Illness Ms. Marie is a 71 y/o female admitted with abdominal pain. She reports over the last 10 days she has had intermittent N/V/D, now resolved. Her last BM was 5 days ago and she has had no diarrhea in over 1 week. She denies melena, hematochezia, or hematemesis. Per CT reports from 06/04/16, she is noted to have some nonspecific colitis. WBC WNL. She is currently tolerating a clear liquid diet and pain is improved. She is being seen by surgery for abdominal US that is remarkable for sludge in the GB. PMH significant for DM, previous CVA and constipation Past History Past Medical History: diabetes, hypertension, hyperlipidemia, stroke Past Surgical History: , hysterectomy, Other (incisional herniorrhaphy. ) Social history: denies: smoking, alcohol abuse, prescription drug abuse, IV drug use Family history: denies: no significant family history Medications and Allergies Allergies Allergy/AdvReac Type Severity Reaction Status Date / Time metformin HCl AdvReac HALLUCINATI Verified 06/04/16 08:56 [From Glucophage] ONS Home Medications Medication Instructions Recorded Confirmed Last Taken Type Ciprofloxacin HCl [Ciprofloxacin 500 mg PO Q12HR #14 tab 06/04/16 06/06/16 07: 00 Rx TAB] Docusate Sodium [Colace] 100 mg PO BID PRN #20 capsule 06/04/16 06/06/16 07:00 Rx Promethazine [Phenergan TAB] 25 mg PO Q6HR PRN #20 tab 06/04/16 06/06/16 07:00 Rx RX: traMADol [Ultram 50 MG tab] 50 mg PO Q6HR PRN #20 tablet 06/04/16 06/06/16 06/06/16 07:00 Rx metroNIDAZOLE [Flagyl] 500 mg PO Q8HR 7 Days 06/04/16 06/06/16 07:00 Rx Canagliflozin (Nf) [Invokana (Nf)] 06/06/16 06/04/16 13:00 History Cilostazol [Pletal] 06/06/16 06/05/16 07:00 History Rosuvastatin (Nf) [Crestor] 06/06/16 06/05/16 21:00 History Active Meds: Active Medications Dextrose (D50w (25gm)) 50 ml IV PRN PRN PRN Reason: Hypoglycemia Enoxaparin Sodium (Lovenox) 40 mg SUB-Q QDAY [facility] Last Admin: 06/07/16 09:57 Dose: 40 mg Dextrose/Sodium Chloride (D5ns0.3) 1,000 mls @ 100 mls/hr IV DIRECT [facility] Last Admin: 06/07/16 22:15 Dose: 100 mls/hr Levofloxacin/Dextrose (Levaquin 500mg/100ml) 100 mls @ 100 mls/hr IV Q24HR [place] PRN Reason: Protocol Last Admin: 06/07/16 09:56 Dose: 100 mls/hr Insulin Aspart (Novolog) 0 units SUB-Q ACHS [place] PRN Reason: Protocol Last Admin: 06/07/16 22:18 Dose: Not Given Metronidazole (Flagyl) 500 mg PO Q8HR [facility] Last Admin: 06/08/16 06:29 Dose: 500 mg Morphine Sulfate (Morphine) 2 mg IV Q4H PRN PRN Reason: Pain, Moderate (4-6) Pantoprazole Sodium (Protonix) 40 mg PO BID [facility] Review of Systems - Review of Systems All systems: negative Constitutional: weakness Gastrointestinal: nausea, vomiting, diarrhea Exam - Constitutional Vital Signs: Temp Pulse Resp BP Pulse Ox 98.2 F 88 22 148/64 99 06/07/16 22:00 06/07/16 22:00 06/07/16 22:00 06/07/16 22:00 06/07/16 22:00 General appearance: no acute distress, obese - EENT Eyes: EOM intact ENT: hearing intact - Neck Neck: supple - Respiratory Respiratory: bilateral: CTA - Cardiovascular Rhythm: regular Heart Sounds: Present: S1 & S2 Extremities: pulses intact - Gastrointestinal General gastrointestinal: Present: soft, tender (mild TTP throughout) - Integumentary Integumentary: Present: warm, dry - Neurologic Neurological: alert and oriented x3 - Psychiatric Psychiatric: appropriate mood/affect - Labs CBC & Chem 7: 06/08/16 05:43 06/08/16 05:43 Lab Results: Laboratory Results - last 24 hr 06/07/16 06/07/16 06/07/16 11:35 16:21 21:39 WBC RBC Hgb Hct MCV MCH MCHC RDW Plt Count Lymph % (Auto) Bent % (Auto) Eos % (Auto) Baso % (Auto) Lymph # Bent # Eos # Baso # Seg Neutrophils % Seg Neutrophils # Sodium Potassium Chloride Carbon Dioxide Anion Gap BUN Creatinine Estimated GFR BUN/Creatinine Ratio Glucose POC Glucose 154 H 113 H 126 H Calcium Total Bilirubin AST ALT Alkaline Phosphatase Total Protein Albumin Albumin/Globulin Ratio 06/08/16 06/08/16 06/08/16 05:43 05:43 06:34 WBC 4.1 L RBC 4.03 Hgb 12.0 Hct 35.7 MCV 89 MCH 30 MCHC 34 RDW 13.5 Plt Count 139 L Lymph % (Auto) 32.2 Bent % (Auto) 11.8 H Eos % (Auto) 6.9 H Baso % (Auto) 0.7 Lymph # 1.3 Bent # 0.5 Eos # 0.3 Baso # 0.0 Seg Neutrophils % 48.4 Seg Neutrophils # 2.0 Sodium 142 Potassium 3.8 Chloride 108.8 H Carbon Dioxide 22 Anion Gap 15 BUN 5 L Creatinine 0.7 Estimated GFR > 60 BUN/Creatinine Ratio 7.14 Glucose 186 H POC Glucose 201 H Calcium 8.5 Total Bilirubin 0.5 AST 37 ALT 29 Alkaline Phosphatase 62 Total Protein 6.3 Albumin 3.3 L Albumin/Globulin Ratio 1.1 Assessment and Plan 1. Colitis -Improved -Abdominal pain associated with previous N/V/D, CT on 06/04/16 remarkable for nonspecific colitis. -Patient reports she has no further N/V/D and her pain is improved. -Currently on Levaquin/Flagyl -Tolerating a clear liquid diet, advance to fulls for lunch if patient continues to tolerate -WBC WNL -Abdominal US c/w GB sludge-per surgery -Patient should complete a round to ABX for colitis (7-10days, change to PO once tolerating full liquids). Likely etiology is infectious vs ischemic with age (favor infectious) -Supportive care <MARIA LUISA NORTON - Last Filed: 06/09/16 08:20> Medications and Allergies Active Meds: Active Medications Dextrose (D50w (25gm)) 50 ml IV PRN PRN PRN Reason: Hypoglycemia Enoxaparin Sodium (Lovenox) 40 mg SUB-Q QDAY [facility] Last Admin: 06/08/16 10:01 Dose: 40 mg Insulin Aspart (Novolog) 0 units SUB-Q ACHS [place] PRN Reason: Protocol Last Admin: 06/09/16 07:50 Dose: Not Given Levofloxacin (Levaquin) 500 mg PO Q24HR [place] Metronidazole (Flagyl) 500 mg PO Q8HR [facility] Last Admin: 06/09/16 07:40 Dose: 500 mg Morphine Sulfate (Morphine) 2 mg IV Q4H PRN PRN Reason: Pain, Moderate (4-6) Last Admin: 06/09/16 07:51 Dose: 2 mg Pantoprazole Sodium (Protonix) 40 mg PO BID [facility] Last Admin: 06/08/16 22:36 Dose: 40 mg Exam - Constitutional Vital Signs: Temp Pulse Resp BP Pulse Ox 98.3 F 78 18 157/74 98 06/09/16 07:05 06/09/16 07:05 06/09/16 07:05 06/09/16 07:05 06/09/16 07:05 - Labs CBC & Chem 7: 06/08/16 05:43 06/08/16 05:43 Lab Results: Laboratory Results - last 24 hr 06/08/16 06/08/16 06/08/16 12:00 16:37 22:24 POC Glucose 96 130 H 93 06/09/16 05:23 POC Glucose 119 H Assessment and Plan Patient seen and examined on 06/08. Agree with note by Carolyn Ortega. Patient with abdominal pain and CT showing right sided colitis. ddx includes ischemia vs infectious, vs possibly other etiology. Symptoms improving. Recommend CTA of abdomen if this is indeed right sided ischemic colitis. Cont abx for 7 days. Will need colonoscopy (can be done as outpatient) to assess healing/rule out other etiologies.
--- NOTE | 2016-06-08 08:58 | Progress Note ---
Assessment and Plan 1. Acute epigastric abdominal pain: Clear liquids only. iv Protonic 2. Infectious Colitis 06/04/16: IV levquin and po flagyl. GI consult 3. Gallbalder sludge: Surgeons's input appreciated. 4. T2DM: optimize glycemic control though pt is on clear liquid. will d/c D51/2 NS. continue with SSI and Consistent carbohydrate diet 5. DVT Ppx: with lovenox - Patient Problems (1) Abdominal pain Diagnosis Date: 06/06/16 Current Visit: No Status: Acute Qualifiers: Abdominal location: generalized Qualified Code(s): R10.84 - Generalized abdominal pain (2) Nonspecific colitis Diagnosis Date: 06/06/16 Current Visit: No Status: Acute (3) Gallbladder sludge Diagnosis Date: 06/06/16 Current Visit: Yes Status: Acute (4) Diabetes 1.5, managed as type 2 Diagnosis Date: 06/06/16 Current Visit: Yes Status: Acute Subjective Date of service: 06/08/16 Principal diagnosis: acute abdominal pain, cholocyctitis Interval history: Abdominal pain getting better. No more n/v Objective - Constitutional Vitals: Vital Signs - 12hr 06/07/16 06/08/16 22:00 08:00 Temperature 98.2 F 98.4 F Pulse Rate [ 88 90 Right] Respiratory 22 20 Rate Blood Pressure 148/64 142/68 [Left Arm] O2 Sat by Pulse 99 98 Oximetry General appearance: Present: no acute distress, well-nourished - EENT Eyes: PERRL, EOM intact ENT: hearing intact, clear oral mucosa Ears: bilateral: normal - Neck Neck: supple, normal ROM - Respiratory Respiratory effort: normal Respiratory: bilateral: CTA - Breasts Breasts: normal - Cardiovascular Rhythm: regular Heart Sounds: Present: S1 & S2. Absent: gallop, rub Extremities: pulses intact, No edema, normal color, Full ROM - Gastrointestinal General gastrointestinal: Present: soft, tender, non-distended (tenderness decreasing), normal bowel sounds - Genitourinary Female genitourinary: normal - Integumentary Integumentary: clear, warm, dry - Musculoskeletal Musculoskeletal: 1, strength equal bilaterally - Neurologic Neurologic: moves all extremities - Psychiatric Psychiatric: memory intact, appropriate mood/affect, intact judgment & insight - Labs CBC & Chem 7: 06/08/16 05:43 06/08/16 05:43 Labs: Abnormal lab results 06/07/16 06/07/16 06/07/16 Range/Units 11:35 16:21 21:39 WBC (4.5-11.0) K/mm3 Plt Count (140-440) K/mm3 [place] % (Auto) (0.0-7.3) % Eos % (Auto) (0.0-4.3) % Chloride (98-107) mmol/L BUN (7-17) mg/dL Glucose (65-100) mg/dL POC Glucose 154 H 113 H 126 H (70-105) Albumin (3.9-5) g/dL 06/08/16 06/08/16 06/08/16 Range/Units 05:43 05:43 06:34 WBC 4.1 L (4.5-11.0) K/mm3 Plt Count 139 L (140-440) K/mm3 [place] % (Auto) 11.8 H (0.0-7.3) % Eos % (Auto) 6.9 H (0.0-4.3) % Chloride 108.8 H (98-107) mmol/L BUN 5 L (7-17) mg/dL Glucose 186 H (65-100) mg/dL POC Glucose 201 H (70-105) Albumin 3.3 L (3.9-5) g/dL
[2016-06-08] MEDS: PROTONIX PO SCH ×2 (10:01→22:36)
[2016-06-08] MEDS: LOVENOX SUB-Q SCH (10:01)
[2016-06-08] MEDS: LEVAQUIN 500MG/100ML 100 ML IV SCH (10:02)
[2016-06-08] MEDS: MORPHINE IV PRN (22:36)
[2016-06-09] MEDS: FLAGYL PO SCH (07:40)
[2016-06-09] MEDS: NOVOLOG SUB-Q SCH ×2 (07:50→12:17)
[2016-06-09] MEDS: MORPHINE IV PRN (07:51)
[2016-06-09 08:03] VITALS: BP 157/74
[2016-06-09] MEDS: LOVENOX SUB-Q SCH (09:37)
[2016-06-09] MEDS: PROTONIX PO SCH (09:38)
[2016-06-09] MEDS ORDERED: LEVAQUIN PO SCH (10:00)
--- NOTE | 2016-06-09 11:55 | Discharge Summary ---
Providers - Providers Date of Admission: 06/06/16 11:35 Date of discharge: 06/09/16 Attending physician: MIA FAIR 06/07/16 09:13 Consult to Physician [CONS] Routine Consulting Provider: NICKIE LOPEZ Reason For Exam: Gall bladder sludge Place consult to:: Jose Notified:: PLEASE CALL MD IN AM Was contact made?: Yes Comment:: said to place patient on list 06/07/16 09:14 Consult to Physician [CONS] Routine Consulting Provider: ESA WALLS Reason For Exam: nonspecific colitis Place consult to:: Naye Notified:: PLEASE CALL MD IN AM Was contact made?: No Primary care physician: MIA FAIR Hospitalization Reason for admission: abdominal pain Condition: Good Pertinent studies: CT scan of the abdomen consistent with colitis Abdominal ultrasound showing gallbladder sludge no cholelithiasis Procedures: CT abdomen Abdominal ultrasound Hospital course: 18-year-old female admitted by Dr. Dr. Fair following abdominal pain and constipation ongoing for the past week prior to presentation. Patient was also having intermittent nausea vomiting. Patient was admitted with the initial diagnosis of abdominal pain to rule out colitis and possible cholelithiasis. CT scan of the abdomen done on the showed ascending colitis. No mass was seen on abdominal CT scan. Patient also had abdominal ultrasound which was consistent with gallbladder sludge but no stone in the gallbladder. Patient was subsequently admitted and started on IV antibiotics with Levaquin and Flagyl. Surgery consultation was obtained and patient was seen by Dr.German Lopez will agree with the diagnosis of colitis and suggested continuation of medical treatment with no indication for surgery at time of evaluation. Patient was also evaluated by GI with assessment of colitis with continuation of medication and subsequent plan for outpatient colonoscopy when patient is more stable. Patient was initially on clear liquid diet which she tolerated she was advanced to full liquid diet which she is tolerating and also now been advanced to full ADA diabetes diet. Patient was subsequently be discharged home to continue with oral antibiotics for a total of 2 weeks and follow-up with Dr. Dr. Fair as outpatient and also with the belt picker as outpatient. Disposition: DISCHARGED TO HOME OR SELFCARE Core Measure Documentation - Palliative Care Palliative Care/ Comfort Measures: Not Applicable - Core Measures Any of the following diagnoses?: none Exam - Physical Exam Narrative exam: GENERAL: Patient is not in any acute distress not been no jaundice no cyanosis HEENT: Mucous membrane is moist pharynx is clear with no exudate or hemorrhage no oral lesion NECK: No JVD, no thyroid enlargement and no lymphadenopathy. CHEST/LUNGS: Good air exchange bilaterally, no wheeze, no rales and no rhonchi. No chest wall tenderness, percussion is normal, symmetrical chest wall. HEART/CARDIOVASCULAR: Regular rate and rhythm, S1 and S2 only, no murmur. ABDOMEN: [Abdomen is soft, nondistended, vague tenderness in the left lower quadrant area no guarding no rebound, no masses palpable per abdomen active bowel sounds no abdominal audible bruit. Liver spleen and kidneys are not palpably enlarged. SKIN: Warm and dry, no rash. NEURO: Awake, alert, oriented x3, speech normal. Power 5/5 in all the extremities. EXTREMITIES: No pedal edema, good peripheral pulses, no finger or toe clubbing. - Constitutional Vitals: Temp Pulse Resp BP Pulse Ox 98.3 F 78 18 157/74 98 06/09/16 07:05 06/09/16 07:05 06/09/16 07:05 06/09/16 07:05 06/09/16 07:05 Plan Activity: advance as tolerated Weight Bearing Status: Full Weight Bearing Diet: low carbohydrate
== END 2016-06-09 14:11 | disposition home or self-care (01) | DRG 392 ==
LOC: UNDOADMIN 10:44 → 3A 10:44
PROVIDERS: ADMIT Family Medicine; ATTEND Family Medicine
DX: A09 Infectious gastroenteritis and colitis, unspecified (principal); K82.9 Disease of gallbladder, unspecified; E11.9 Type 2 diabetes mellitus without complications; E78.5 Hyperlipidemia, unspecified; K81.9 Cholecystitis, unspecified; Z86.73 Personal history of transient ischemic attack (TIA), and cerebral infarction without residual deficits; Z88.8 Allergy status to other drugs, medicaments and biological substances; Z79.899 Other long term (current) drug therapy; Z90.710 Acquired absence of both cervix and uterus
CPT/HCPCS: 36415; 76705; 80053; 82150; 82962; 83690; 85025; C9113; J1650; J1815; J1956; J2270; J3480

== ENCOUNTER 2016-09-24 19:31 | Emergency (ER) | payer MEDICARE ==
--- NOTE | 2016-09-25 06:25 | Emergency Department Report ---
ED General Adult HPI - General Chief complaint: Abdominal Pain Stated complaint: ABD/CHEST PAIN Time Seen by Provider: 09/25/16 06:23 Source: patient Mode of arrival: Ambulatory Limitations: No Limitations - History of Present Illness Initial comments: The patient has a variety of complaints. She is principally complaining of a nonproductive cough. She states that she has urinary flow with cough and some dysuria. He complains of rhinitis but no purulent drainage. She's not had a fever or chills. She is not complaining of any dyspnea. She had some vague symptoms at triage "not getting enough air". However she has no difficulty breathing whatsoever now. She denies chest pain leg swelling or pain she says a recent travel. She has occasional crampy abdominal discomfort. -: days(s) Location: abdomen Radiation: non-radiation Quality: other (crampy) Consistency: intermittent Improves with: none Worsens with: none Associated Symptoms: denies other symptoms (except as above indicated) - Related Data Home Medications Medication Instructions Recorded Confirmed Last Taken Canagliflozin (Nf) [Invokana (Nf)] 100 mg PO DAILY 06/06/16 09/25/16 09/24/16 Insulin Aspart [Novolog Flexpen] 16 unit SQ AC 09/25/16 09/25/16 09/24/16 Insulin Glargine,Hum.rec.anlog 40 units SQ QHS 09/25/16 09/25/16 09/24/16 [Lantus Solostar] Lisinopril [Zestril] 20 mg PO QDAY 09/25/16 09/25/16 09/24/16 amLODIPine [Norvasc] 5 mg PO DAILY 09/25/16 09/25/16 09/24/16 Previous Rx's Medication Instructions Recorded Last Taken Type Sulfamethoxazole/Trimethoprim 1 each PO BID #14 tablet 09/25/16 Unknown Rx [Bactrim DS TAB] traMADol [Ultram] 50 mg PO Q6HR PRN #10 tablet 09/25/16 Unknown Rx Allergies Allergy/AdvReac Type Severity Reaction Status Date / Time metformin HCl AdvReac HALLUCINATI Verified 06/04/16 08:56 [From Glucophage] ONS ED Review of Systems ROS: Stated complaint: ABD/CHEST PAIN Other details as noted in HPI Constitutional: denies: chills, fever Eyes: denies: eye pain, eye discharge, vision change ENT: as per HPI. denies: throat pain Respiratory: cough. denies: shortness of breath, wheezing Cardiovascular: denies: chest pain, palpitations Endocrine: no symptoms reported Gastrointestinal: as per HPI, abdominal pain. denies: nausea, vomiting, diarrhea Genitourinary: denies: urgency, dysuria, discharge Musculoskeletal: denies: back pain, joint swelling, arthralgia Skin: denies: rash, lesions Neurological: denies: headache, weakness, paresthesias Psychiatric: denies: anxiety, depression Hematological/Lymphatic: denies: easy bleeding, easy bruising ED Past Medical Hx - Past Medical History Previous Medical History?: Yes Hx Hypertension: Yes Hx CVA: Yes (CVA 01-28-13) Hx Diabetes: Yes Hx GERD: Yes Hx Arthritis: Yes Hx Kidney Stones: Yes Hx Asthma: Yes - Surgical History Past Surgical History?: Yes Additional Surgical History: . HERNIA REPAIR X 2. HYSTERECTOMY - Social History Smoking Status: Never Smoker Substance Use Type: None - Medications Home Medications: Home Medications Medication Instructions Recorded Confirmed Last Taken Type Canagliflozin (Nf) [Invokana (Nf)] 100 mg PO DAILY 06/06/16 09/25/16 09/24/16 History Insulin Aspart [Novolog Flexpen] 16 unit SQ AC 09/25/16 09/25/16 09/24/16 History Insulin Glargine,Hum.rec.anlog 40 units SQ QHS 09/25/16 09/25/16 09/24/16 History [Lantus Solostar] Lisinopril [Zestril] 20 mg PO QDAY 09/25/16 09/25/16 09/24/16 History Sulfamethoxazole/Trimethoprim 1 each PO BID #14 tablet 09/25/16 Unknown Rx [Bactrim DS TAB] amLODIPine [Norvasc] 5 mg PO DAILY 09/25/16 09/25/16 09/24/16 History traMADol [Ultram] 50 mg PO Q6HR PRN #10 tablet 09/25/16 Unknown Rx ED Physical Exam - General Limitations: No Limitations General appearance: alert, in no apparent distress - Head Head exam: Present: atraumatic, normocephalic - Eye Eye exam: Present: normal appearance. Absent: scleral icterus - ENT ENT exam: Present: normal exam, mucous membranes moist - Neck Neck exam: Present: normal inspection. Absent: tenderness, meningismus - Respiratory Respiratory exam: Present: normal lung sounds bilaterally. Absent: respiratory distress - Cardiovascular Cardiovascular Exam: Present: regular rate, normal rhythm. Absent: systolic murmur, diastolic murmur, rubs, gallop - GI/Abdominal GI/Abdominal exam: Present: soft, normal bowel sounds. Absent: distended, tenderness, guarding, rebound, rigid - Extremities Exam Extremities exam: Present: normal inspection - Back Exam Back exam: Present: normal inspection. Absent: CVA tenderness (R), CVA tenderness (L) - Neurological Exam Neurological exam: Present: alert, oriented X3, CN II-XII intact. Absent: motor sensory deficit - Psychiatric Psychiatric exam: Present: normal affect, normal mood - Skin Skin exam: Present: warm, dry, intact, normal color. Absent: rash ED Course Vital Signs 09/24/16 09/25/16 09/25/16 19:42 05:30 06:00 Temperature 99 F Pulse Rate 108 H Respiratory 18 Rate Blood Pressure 145/92 130/78 131/76 Blood Pressure [Left] O2 Sat by Pulse 96 95 Oximetry 09/25/16 09/25/16 09/25/16 06:30 06:49 07:28 Temperature 98.9 F Pulse Rate 97 H Respiratory 18 Rate Blood Pressure 128/76 130/78 Blood Pressure 144/53 [Left] O2 Sat by Pulse 97 100 100 Oximetry 09/25/16 09/25/16 09/25/16 07:30 07:39 08:00 Temperature 98.1 F Pulse Rate 90 Respiratory 18 Rate Blood Pressure 140/76 136/78 Blood Pressure 140/76 [Left] O2 Sat by Pulse 100 99 97 Oximetry 09/25/16 09/25/16 09/25/16 08:30 09:00 09:30 Temperature Pulse Rate Respiratory Rate Blood Pressure 140/76 133/80 133/80 Blood Pressure [Left] O2 Sat by Pulse 96 97 Oximetry 09/25/16 10:00 Temperature Pulse Rate Respiratory Rate Blood Pressure 134/72 Blood Pressure [Left] O2 Sat by Pulse Oximetry - Reevaluation(s) Reevaluation #1: Patient was seen resting comfortably in no distress. On reevaluation she was actually sleeping. Upon awakening she really had no specific complaint. She is discharged in stable condition. 09/25/16 10:59 ED Medical Decision Making - Lab Data Result diagrams: 09/25/16 08:12 09/25/16 08:12 Laboratory Results - last 24 hr 09/25/16 09/25/16 09/25/16 08:12 08:12 08:27 WBC 7.2 RBC 4.75 Hgb 14.1 Hct 42.6 MCV 90 MCH 30 MCHC 33 RDW 13.9 Plt Count 165 Lymph % (Auto) 25.3 Tyrrell % (Auto) 10.1 H Eos % (Auto) 7.0 H Baso % (Auto) 0.5 Lymph # 1.8 Tyrrell # 0.7 Eos # 0.5 H Baso # 0.0 Seg Neutrophils % 57.1 Seg Neutrophils # 4.1 Sodium 144 Potassium 4.2 Chloride 105.1 Carbon Dioxide 24 Anion Gap 19 BUN 13 Creatinine 0.6 L Estimated GFR > 60 BUN/Creatinine Ratio 21.66 Glucose 135 H Calcium 9.3 Total Bilirubin 0.60 Direct Bilirubin < 0.2 Indirect Bilirubin 0.4 AST 34 ALT 51 Alkaline Phosphatase 111 Total Protein 7.2 Albumin 3.8 L Albumin/Globulin Ratio 1.1 Lipase 55 Urine Color Yellow Urine Turbidity Clear Urine pH 5.0 Ur Specific Warriors Mark 1.024 Urine Protein <15 mg/dl Urine Glucose (UA) >=500 Urine Ketones Neg Urine Blood Neg Urine Nitrite Neg Urine Bilirubin Neg Urine Urobilinogen < 2.0 Ur Leukocyte Esterase Sm Urine WBC (Auto) 12.0 H Urine RBC (Auto) 4.0 U Epithel Cells (Auto) 3.0 Urine Bacteria (Auto) 1+ Urine Mucus Few - EKG Data -: EKG Interpreted by Me EKG shows normal: sinus rhythm, axis, intervals, QRS complexes, ST-T waves Rate: normal - EKG Data Interpretation: other (borderline left atrial enlargement borderline sinus tachycardia) Critical care attestation.: If time is entered above; I have spent that time in minutes in the direct care of this critically ill patient, excluding procedure time. ED Disposition Clinical Impression: Abdominal pain Qualifiers: Abdominal location: unspecified location Qualified Code(s): R10.9 - Unspecified abdominal pain UTI (urinary tract infection) Qualifiers: Urinary tract infection type: site unspecified Hematuria presence: without hematuria Qualified Code(s): N39.0 - Urinary tract infection, site not specified Acute bronchitis Qualifiers: Bronchitis organism: unspecified organism Qualified Code(s): J20.9 - Acute bronchitis, unspecified Disposition: DISCHARGED TO HOME OR SELFCARE Is pt being admited?: No Does the pt Need Aspirin: No Condition: Stable Instructions: Abdominal Pain (ED), Acute Bronchitis (ED), Urinary Tract Infection in Women (ED) Additional Instructions: Follow-up with Dr. Fair in 2-3 days. Urine culture should be ready by then. Rx as directed. Return any acute change or problem. Prescriptions: Sulfamethoxazole/Trimethoprim [Bactrim DS TAB] 1 each PO BID #14 tablet traMADol [Ultram] 50 mg PO Q6HR PRN #10 tablet PRN Reason: Pain Referrals: MIA FAIR MD [Primary Care Provider] - 2-3 Days Time of Disposition: 11:04
--- NOTE | 2016-09-25 07:19 | Admit Criteria Form ---
Admission Criteria Documentation: ABDOMINAL PAIN Clinical Indications for Admission to Inpatient Care (Place 'X' for any and all applicable criteria): Admission is indicated for ANY ONE of the following(1)(2)(3)(4)(5): [ X]I. Inpatient admission required rather than observation care (Also use Abdominal Pain: Observation Care, as appropriate) because of ANY ONE of the following: [ ]a) Severe pain requiring acute inpatient management [ ]b) Identification of etiology/finding that requires inpatient care (eg, aortic dissection, free air) [ ]c) Absent bowel sounds with complete ileus(6) [ ]d) Suspected toxic megacolon [ ]e) Severe electrolyte abnormalities requiring inpatient care [ ]f) High fever or infection requiring inpatient admission as indicated by ANY ONE of following(7)(8): [ ] i) Appropriate outpatient or observational care antimicrobial treatment unavailable, not effective, or not feasible [ ] ii) Documented bacteremia [ ] iii) Temperature > 104.9 degrees F (oral) [ ] iv) T >103.1 F (oral) or < 96.8 F(rectal) that does not respond to all emergency treatment measures [ ]g) Signs of intestinal obstruction [B] [ ]h) Hemodynamic instability [ ]i) IV fluid to replace significant ongoing losses (greater than 3 L/m2 per day) (12)(13) [ ]j) Percutaneous or open drainage (eg, abscess, biliary tract ) procedures [ ]k) Parenteral nutrition regimen that must be implemented on inpatient basis [X ]l) Other condition,treatment or monitoring requiring inpatient admission. [ ]II. Peritoneal signs present [ ]III. Surgery needed that cannot be performed on an ambulatory basis. [ ]IV. Evaluation requires patient to not eat or drink for extended period ( eg, more than 24 hours). [ ]V. Contraindications and/or Inappropriate clinical situations for Observational Care in patients with abdominal pain, when ANY ONE of the following is required: [ ]a) Thorough evaluation is required to prevent catastrophic events due to delays in diagnosing (e.g.Mesenteric ischemia) 1,3 [ ]b) Patient with severe pathology or with chronic symptoms unlikely to improve in the ED stay (3) [X ]. General contraindications and/or Inappropriate clinical situations for Observational Care in patients with abdominal pain, when ANY ONE of the following is required: [X ]a) Prediction of prolongation of LOS based on ANY ONE of the following may be considered as a contraindication for observational care 2, 3, 4, 5, 6, 7, 8, 9, 10, 11 [X ]i) Age > 65 yrs. [ ]ii) Patient arriving by ambulance [ ]iii) Patient with high acuity [ ]iv) Patient requiring vital sign monitoring [ ]v) Patient on IV medication [ ]b) Systolic blood pressures 180mmHg 3,12 [ ]c) Patient with altered mental status including delirium and other alteration of consciousness, (3) [ ]d) Patient whose discharge disposition will be to a penitentiary home or rehabilitation home should not be managed in Emergency Department Observation Unit. CMS rule requires 3 days hospital stay before such placement.3,13 [ ]e) Patient with failure to thrive due to broad array of etiologies 3,16,17 [ ]f) Inability to ambulate 3,14 Extended stay beyond goal length of stay may be needed for(2)(3): [ ]a) Persistent abdominal pain with suspected intra-abdominal process [ ]b) Diagnosed condition requiring continued stay (e.g., pancreatitis, complicated diverticulitis) [ ]c) Surgery (e.g., colectomy) The original [facility] content created by [employer] has been revised. The portions of the content which have been revised are identified through the use of italic text or in bold, and [facility] has neither reviewed nor approved the modified material.All other unmodified content is copyright [facility]. Please see references footnoted in the original [facility] edition 2016
[2016-09-25 08:32] LABS: Basophils % (Auto) 0.5 % (0.0-1.8); Hematocrit 42.6 % (30.3-42.9); Hemoglobin 14.1 gm/dl (10.1-14.3); Mean Corpuscular HGB Conc 33 % (30-34); Mean Corpuscular Hemoglobin 30 pg (28-32); Mean Corpuscular Volume 90 fl (79-97); Platelet Count 165 K/mm3 (140-440); Red Blood Count 4.75 M/mm3 (3.65-5.03); Red Cell Distribution Width 13.9 % (13.2-15.2); White Blood Count 7.2 K/mm3 (4.5-11.0)
[2016-09-25 08:45] LABS: Alanine Aminotransferase 51 units/L (7-56); Albumin 3.8 g/dL (3.9-5); Albumin/Globulin Ratio 1.1 %; Alkaline Phosphatase 111 units/L (35-129); Anion Gap 19 mmol/L; BUN/Creatinine Ratio 21.66; Blood Urea Nitrogen 13 mg/dL (7-17); Calcium 9.3 mg/dL (8.4-10.2); Carbon Dioxide 24 mmol/L (22-30); Chloride 105.1 mmol/L (98-107); Glucose 135 mg/dL (65-100); Lipase 55 units/L (13-60); Potassium 4.2 mmol/L (3.6-5.0); Sodium 144 mmol/L (137-145); Total Protein 7.2 g/dL (6.3-8.2)
--- NOTE | 2016-09-25 08:49 | XRay Report ---
AP portable chest x-ray. History: Cough. Findings: The heart and pulmonary vessels are normal. Minimal increased density is seen behind the heart; otherwise, the lungs are clear. No pleural fluid is seen. Impression: Minimal left lower lobe atelectasis in the retrocardiac region.
[2016-09-25 08:50] LABS: Bilirubin,Direct < 0.2 mg/dL (0-0.2); Bilirubin,Indirect 0.4 mg/dL
[2016-09-25 09:41] LABS: Bacteria,Urine 1+ /HPF (Negative); Bilirubin,Urine NEG (Negative); Blood,Urine NEG (Negative); Ketones,Urine NEG (Negative); Leukocyte Esterase,Urine SM (Negative); Mucus,Urine FEW /HPF; Nitrite,Urine NEG (Negative); Protein,Urine <15 mg/dL mg/dL (Negative); Urobilinogen,Urine < 2.0 mg/dL (<2.0)
[2016-09-25 11:28] VITALS: BP 132/68
== END 2016-09-25 11:29 | disposition home or self-care (01) ==
LOC: ED 19:31
DX: R10.9 Unspecified abdominal pain (principal); N39.0 Urinary tract infection, site not specified; J20.9 Acute bronchitis, unspecified; Z86.73 Personal history of transient ischemic attack (TIA), and cerebral infarction without residual deficits; I10 Essential (primary) hypertension; E11.9 Type 2 diabetes mellitus without complications; K21.9 Gastro-esophageal reflux disease without esophagitis; M19.90 Unspecified osteoarthritis, unspecified site; J45.909 Unspecified asthma, uncomplicated; Z79.4 Long term (current) use of insulin
CPT/HCPCS: 36415; 71010; 80048; 80074; 81001; 83690; 85025; 87086; 93005; 93010

== ENCOUNTER 2018-05-05 08:52 | Emergency (ER) | payer MEDICARE ==
[2018-05-05 09:14] VITALS: BP 143/67
--- NOTE | 2018-05-05 09:39 | Emergency Department Report ---
Minor Respiratory - HPI Chief Complaint: Upper Respiratory Infection Stated Complaint: COLD SX Time Seen by Provider: 05/05/18 09:19 Duration: 3 Days Pain Location: Facial, Throat, Nose, Ear, Chest Severity: mild Minor Respiratory: Yes Sore Throat, Yes Able to Tolerate Fluids, Yes Ear Pain, Yes Cough, No Rhinorrhea, No Sick Contacts, No Hemoptysis, No Chest Pain, No Sh ortness of Breath, No Fever Other History: She is a pleasant 73-year-old -[place] Citizen female comes to the ER with a complaint of cough for about a month. She denies fever. She complains of sinus congestion, sore throat, and this cough. She is ambulatory and nontoxic ED Review of Systems ROS: Stated complaint: COLD SX Other details as noted in HPI Comment: All other systems reviewed and negative Constitutional: see HPI. denies: chills Eyes: as per HPI ENT: as per HPI, ear pain, throat pain Respiratory: see HPI, cough Cardiovascular: denies: chest pain, palpitations Endocrine: denies: flushing, intolerance to cold Gastrointestinal: denies: nausea, vomiting Genitourinary: denies: urgency, dysuria Musculoskeletal: denies: back pain Skin: denies: rash, lesions Neurological: denies: headache, weakness Psychiatric: denies: anxiety, depression Hematological/Lymphatic: denies: easy bleeding ED Past Medical Hx - Past Medical History Hx Hypertension: Yes Hx CVA: Yes (CVA 01-28-13) Hx Diabetes: Yes Hx GERD: Yes Hx Arthritis: Yes Hx Kidney Stones: Yes Hx Asthma: Yes - Surgical History Additional Surgical History: . HERNIA REPAIR X 2. HYSTERECTOMY - Social History Smoking Status: Never Smoker Substance Use Type: None - Medications Home Medications: Home Medications Medication Instructions Recorded Confirmed Last Taken Type Canagliflozin (Nf) [Invokana (Nf)] 100 mg PO DAILY 06/06/16 09/25/16 09/24/16 History Insulin Aspart [Novolog Flexpen] 16 unit SQ AC 09/25/16 09/25/16 09/24/16 History Insulin Glargine,Hum.rec.anlog 40 units SQ QHS 09/25/16 09/25/16 09/24/16 History [Lantus Solostar] Lisinopril [Zestril] 20 mg PO QDAY 09/25/16 09/25/16 09/24/16 History amLODIPine [Norvasc] 5 mg PO DAILY 09/25/16 09/25/16 09/24/16 History Azithromycin [Zithromax Z-SALVADOR] 250 mg PO DAILY #6 tablet 05/05/18 Unknown Rx Benzonatate [Tessalon Perles] 100 mg PO Q8HR PRN #20 capsule 05/05/18 Unknown Rx Fluticasone [Flonase] 1 spray NS QDAY #1 bottle 05/05/18 Unknown Rx predniSONE [Deltasone] 20 mg PO DAILY #4 tablet 05/05/18 Unknown Rx Minor Respiratory Exam - Exam General: Vital signs noted. No distress. Alert and acting appropriately. HEENT: Yes Pharyngeal Erythema, Yes Moist Mucous Membranes, Yes Maxillary Tenderness, No Pharyngeal Exudates, No Rhinorrhea, No Conjuctival Injection, No Frontal Tenderness Ear: Neither TM Bulge, Neither TM Erythema, Neither EAC Pain, Neither EAC Discharge Neck: Yes Supple, No Adenopathy Lungs: Yes Good Air Exchange, Yes Wheezes (bilateral lower lobe wheezing), Yes Cough (no purulent sputum), No Ronchi, No Stridor, No Labored Respirations, No Retractions, No Use of Accessory Muscles, No Other Abnormal Lung Sounds Heart: Yes Regular, No Murmur Abdomen: Yes Normal Bowel Sounds, No Tenderness, No Peritoneal Signs Skin: No Rash, No Edema Neurologic: Alert and oriented, no deficits. Musculoskeletal: Unremarkable. ED Course Vital Signs 05/05/18 09:11 Temperature 98.5 F Pulse Rate 84 Respiratory 20 Rate Blood Pressure 143/67 O2 Sat by Pulse 100 Oximetry ED Medical Decision Making - Radiology Data Radiology results: report reviewed, image reviewed - Medical Decision Making Patient is nontoxic and ambulatory. She is afebrile. She didn't get a flu shot. She has no myalgia. She has a cough of several weeks. Signs and symptoms most consistent with sinusitis. Chest x-ray negative for consolidation. - Differential Diagnosis respiratory tract infection rule out pneumonia given her age, rule out flu Critical care attestation.: If time is entered above; I have spent that time in minutes in the direct care of this critically ill patient, excluding procedure time. ED Disposition Clinical Impression: URTI (acute upper respiratory infection), Sinusitis, Diabetes 1.5, managed as type 2 Disposition: DC-01 TO HOME OR SELFCARE Is pt being admited?: No Does the pt Need Aspirin: No Condition: Stable Instructions: Upper Respiratory Infection (ED) Additional Instructions: HYDRATE WELL WITH WATER MEDS ORDERED TODAY FOLLOW UP PCP THE END OF THE WEEK IF NOT FEELING BETTER MOTRIN OR TYLENOL FOR PAIN OR FEVER DIABETIC DIET FOLLOW YOUR BLOOD SUGARS- MAY BE ELEVATED FOR A FEW DAYS Referrals: PRIMARY CARE, [Primary Care Provider] - 3-5 Days Time of Disposition: 09:56
[2018-05-05] MEDS ORDERED: PROVENTIL IH ONE (09:43)
[2018-05-05] MEDS ORDERED: SOLU-Medrol IM ONE (09:43)
--- NOTE | 2018-05-05 10:06 | XRay Report ---
ROUTINE CHEST, TWO VIEWS: Cough. PA and lateral views demonstrate the heart and mediastinal contour to be of normal size and shape. The lungs are clear and fully expanded and the soft tissues and bony structures are normal. IMPRESSION: Normal study.
== END 2018-05-05 10:35 | disposition home or self-care (01) ==
LOC: ED 08:52
DX: J06.9 Acute upper respiratory infection, unspecified (principal); E11.9 Type 2 diabetes mellitus without complications; J32.9 Chronic sinusitis, unspecified; I10 Essential (primary) hypertension; K21.9 Gastro-esophageal reflux disease without esophagitis; M19.90 Unspecified osteoarthritis, unspecified site; J45.909 Unspecified asthma, uncomplicated; Z87.442 Personal history of urinary calculi; Z88.5 Allergy status to narcotic agent; Z90.710 Acquired absence of both cervix and uterus; Z79.4 Long term (current) use of insulin
CPT/HCPCS: 71046; 94640; 96372; 99283; J2930

== ENCOUNTER 2020-06-16 07:08 | Observation (INO) | payer MEDICARE ==
[2020-06-16] MEDS ORDERED: SODIUM CHLORIDE 0.9% 500 ML 500 ML IV SCH (08:00)
[2020-06-16] MEDS ORDERED: ASPIRIN EC 325 MG TAB PO ONE (08:00)
[2020-06-16 08:06] LABS: Basophils % (Auto) 0.4 % (0.0-1.8); Eosinophils # (Auto) 0.4 K/mm3 (0.0-0.4); Eosinophils % (Auto) 4.9 % (0.0-4.3); Hematocrit 38.6 % (30.3-42.9); Hemoglobin 13.2 gm/dl (10.1-14.3); Lymphocytes # (Auto) 1.8 K/mm3 (1.2-5.4); Lymphocytes % (Auto) 25.6 % (13.4-35.0); Mean Corpuscular HGB Conc 34 % (30-34); Mean Corpuscular Volume 91 fl (79-97); Monocytes # (Auto) 0.7 K/mm3 (0.0-0.8); Monocytes % (Auto) 9.9 % (0.0-7.3); Platelet Count 144 K/mm3 (140-440); Red Blood Count 4.25 M/mm3 (3.65-5.03); Red Cell Distribution Width 13.6 % (13.2-15.2)
[2020-06-16 08:16] LABS: INR 1.08 (0.87-1.13)
[2020-06-16 08:20] LABS: BUN/Creatinine Ratio 19; Blood Urea Nitrogen 15 mg/dL (7-17); Calcium 9.6 mg/dL (8.4-10.2); Hemolysis Index 1
--- NOTE | 2020-06-16 08:44 | History and Physical Report ---
History of Present Illness Date of examination: 06/16/20 Date of admission: today Chief complaint: sob History of present illness: 75-year-old female with history of diabetes for 25 years hypertension hyperlipidemia having shortness of breath with exertion. With intermittent chest pain. Patient has stress test shows mild anterior wall ischemia. With normal LV function. Patient has been having symptoms on and off. Despite medical therapy. See her for left heart catheterization explained the risk and benefits. Past History Past Medical History: diabetes, hypertension, hyperlipidemia Past Surgical History: No surgical history Social history: no significant social history Family history: no significant family history Medications and Allergies Allergies Allergy/AdvReac Type Severity Reaction Status Date / Time shrimp Allergy Unknown Verified 06/16/20 08:16 metformin HCl AdvReac HALLUCINATI Verified 06/04/16 08:56 [From Glucophage] ONS Home Medications Medication Instructions Recorded Confirmed Last Taken Type Canagliflozin (Nf) [Invokana (Nf)] 100 mg PO DAILY 06/06/16 09/25/16 09/24/16 History Insulin Aspart (Nf) [Novolog 16 unit SQ AC 09/25/16 09/25/16 09/24/16 History Flexpen] Insulin Glargine,Hum.rec.anlog 40 units SQ QHS 09/25/16 09/25/16 09/24/16 History [Lantus Solostar] amLODIPine [Norvasc] 5 mg PO DAILY 09/25/16 09/25/16 09/24/16 History lisinopriL [Zestril] 20 mg PO QDAY 09/25/16 09/25/16 09/24/16 History Azithromycin [Zithromax Z-SALVADOR] 250 mg PO DAILY #6 tablet 05/05/18 Unknown Rx Benzonatate [Tessalon Perles] 100 mg PO Q8HR PRN #20 capsule 05/05/18 Unknown Rx Fluticasone [Flonase] 1 spray NS QDAY #1 bottle 05/05/18 Unknown Rx predniSONE [Deltasone] 20 mg PO DAILY #4 tablet 05/05/18 Unknown Rx Benzonatate [Tessalon Perles] 100 mg PO Q8HR PRN #21 capsule 05/14/19 Unknown Rx Active Meds: Active Medications Sodium Chloride (Nacl 0.9% 500 Ml) 500 mls @ 50 mls/hr IV DIRECT [place] Stop: 06/16/20 17:59 Last Admin: 06/16/20 08:20 Dose: 50 mls/hr Documented by: Review of Systems All systems: negative (As per the HPI) Physical Examination Vital Signs Temp Pulse Resp BP Pulse Ox 98.6 F 88 14 148/75 97 06/16/20 08:17 06/16/20 08:17 06/16/20 08:17 06/16/20 08:17 06/16/20 08:17 General appearance: no acute distress, well-nourished HEENT: Positive: PERRL, Mucus Membranes Moist Neck: Positive: neck supple, trachea midline Cardiac: Positive: Reg Rate and Rhythm, S1/S2. Negative: Audible Murmur Lungs: Positive: clear to auscultation, Normal Breath Sounds Neuro: Positive: Grossly Intact Abdomen: Positive: Soft, Active Bowel Sounds. Negative: Tender, Distended Female genitourinary: deferred Skin: Positive: Clear Incision: Cardiac Cath Site Musculoskeletal: No Pain, Normal Range of Motion Extremities: Present: normal. Absent: edema Results 06/16/20 07:58 06/16/20 07:58 Coagulation 06/16/20 Range/Units 07:58 PT 13.8 (12.2-14.9) Sec. INR 1.08 (0.87-1.13) APTT 29.0 (24.2-36.6) Sec. CBC 06/16/20 Range/Units 07:58 WBC 7.2 (4.5-11.0) K/mm3 RBC 4.25 (3.65-5.03) M/mm3 Hgb 13.2 (10.1-14.3) gm/dl Hct 38.6 (30.3-42.9) % Plt Count 144 (140-440) K/mm3 Lymph # (Auto) 1.8 (1.2-5.4) K/mm3 Morrill # (Auto) 0.7 (0.0-0.8) K/mm3 Eos # (Auto) 0.4 (0.0-0.4) K/mm3 Baso # (Auto) 0.0 (0.0-0.1) K/mm3 Comprehensive Metabolic Panel 06/16/20 Range/Units 07:58 Sodium 145 (137-145) mmol/L Potassium 4.2 (3.6-5.0) mmol/L Chloride 108.8 H (98-107) mmol/L Carbon Dioxide 29 (22-30) mmol/L BUN 15 (7-17) mg/dL Creatinine 0.8 (0.6-1.2) mg/dL Glucose 127 H (65-100) mg/dL Calcium 9.6 (8.4-10.2) mg/dL - Imaging and Cardiology Stress echo: report reviewed (Mild anterior wall ischemia with normal LV function) Echo: report reviewed (Normal LV function mild MR mitral annular calcification no aortic stenosis) EKG interpretations - Telemetry EKG Rhythm: Sinus Rhythm (Sinus rhythm nonspecific ST-T) Assessment and Plan 75-year-old patient with diabetes hypertension hyperlipidemia having shortness of breath with abnormal stress test here for left heart catheterization explained risk and benefits of the procedure - Patient Problems (1) Abnormal nuclear stress test Current Visit: Yes Status: Acute (2) Shortness of breath on exertion Current Visit: Yes Status: Acute (3) Hyperlipidemia Current Visit: Yes Status: Chronic Qualifiers: Hyperlipidemia type: mixed hyperlipidemia Qualified Code(s): E78.2 - Mixed hyperlipidemia (4) Diabetes 1.5, managed as type 2 Onset Date: 06/06/16 Current Visit: No Status: Chronic
[2020-06-16] MEDS ORDERED: HEPARIN/NS 5000 UNIT/500ML 1,000 ML IR ONE (10:32)
[2020-06-16] MEDS: fentaNYL 100 MCG/2 ML INJ ONE ×2 (10:58→11:06)
[2020-06-16] MEDS: MIDAZOLAM 2 MG/2 ML INJ ONE ×2 (10:58→11:06)
[2020-06-16] MEDS: LIDOCAINE (2%) 20 MG/1 ML VIAL 20 ML MDV INFILTRATI ONE ×2 (10:58→11:09)
[2020-06-16] MEDS: HEPARIN 10,000 UNITS/10 ML VIAL ONE ×3 (10:59→11:22)
[2020-06-16] MEDS: VERAPAMIL 5 MG/2 ML INJ ONE ×2 (10:59→11:11)
[2020-06-16] MEDS: NITROGLYCERIN SYRINGE 3 ML ONE ×2 (11:00→11:11)
[2020-06-16] MEDS ORDERED: NITROGLYCERIN SYRINGE 3 ML ONE (11:24)
[2020-06-16] MEDS ORDERED: ATROPINE 0.1% (1 MG/10 ML) CARDIAC SYRINGE ONE (11:25)
[2020-06-16] MEDS ORDERED: SODIUM CHLORIDE 0.9% 500 ML 500 ML ONE (11:32)
[2020-06-16] MEDS ORDERED: ALUM-MAG HYDROXIDE-SIMETHICONE 200-200-20MG/5ML ORAL LIQD 30 ML ONE (11:41)
[2020-06-16] MEDS ORDERED: CLOPIDOGREL 300 MG TAB ONE (11:41)
[2020-06-16] MEDS ORDERED: HYDROcodone/ACETAMINOPHEN 5-325 MG TAB PO PRN (12:24)
--- NOTE | 2020-06-16 13:08 | Cardiac Catherization Report ---
LEFT HEART CATHETERIZATION/PERCUTANEOUS CORONARY INTERVENTION/INTRAVASCULAR ULTRASOUND REPORT CLINICAL INFORMATION: This is a 75-year-old female with history of stroke, hypertension, diabetes, cholesterol, presents with shortness of breath with abnormal stress test despite medical therapy, is here for left heart catheterization. Procedure was done with moderate sedation, started 11:06, finished at 11:55, that is 49 minutes of moderate sedation. DESCRIPTION OF PROCEDURE: Procedure was done via the right radial artery, sterile technique, local anesthesia, 6-Egyptian radial sheath inserted. Left system engaged with JL3.5 catheter. Left main is large and patent, bifurcates into medium caliber LAD, proximal has 20%. The mid LAD has a focal 90%, diagonal 1 is small caliber vessel, patent. Circumflex is a large caliber vessel, patent, mild luminal irregularities. OM1 is a medium to large caliber vessel, patent with mild luminal irregularities. OM2 is a medium to large caliber vessel, patent with mild luminal irregularities. RCA engaged with JR4, is a medium caliber vessel, diffuse disease with proximal area of 90%, mid 30%. PLV is small, patent, but PDA has a 99% lesion noted in the proximal midsection. LV gram done in MCKAYLA and CRISOSTOMO view shows normal LV function, EF 55-60%. LVEDP 30 mmHg, LV is 150/13, aortic is 149/68. No gradient across the aortic valve on pullback. PERCUTANEOUS/INTRAVASCULAR ULTRASOUND OF THE RIGHT CORONARY ARTERY: 1. Engaged RCA with a JR4 guiding catheter. 2. Crossed with difficulty into the distal PLV with a short [place] wire. 3. Predilated with 2.0 x 12 balloon x 3 inflations and then predilated the proximal RCA with the same 2.0 balloon. 4. Intravascular ultrasound shows distal reference vessel of 2.25, diffuse disease proximal with reference vessels 3.0, mild calcification. 5. Stented PLV with a drug-eluting Resolute [place] 2.25 x 18 mm inflated at 12 atmospheres. 6. Stented the proximal RCA with a drug-eluting Resolute [place] 3.0 x 18 at 15 atmospheres. 7. We pulled the wire back, multiple angiograms, excellent angiographic result, reduced stenosis to 0% in the PLV and the proximal RCA. Mid RCA has the same 30%. The patient has removed coronary wire, multiple angiograms, excellent angiographic result, DELMI-3 flow. No dissection or perforation noted. A 6-Egyptian guiding catheter taken over guidewire, 6-Egyptian radial sheath was discontinued. Radial band applied. No hematoma, no bleeding. SUMMARY: Successful PCI of the proximal RCA with 3.0 x 18 and the PLV with 2.25 x 18, mid RCA 30%, left main patent, LAD proximal 20%, mid 90%, circumflex patent with mild luminal irregularities. OM1 and OM2 medium to large caliber vessel, patent with mild luminal irregularities, normal LV function. Post-PCI care with normal LV function. Aspirin, Plavix given. Discussed this in detail with the patient and the patient's daughter. We will stage PCI of the LAD in 2-3 weeks' time. JOB# [id number] BALJIT/RICO
[2020-06-16] MEDS ORDERED: DEXTROSE 50% IN WATER (25GM) 50 ML SYRINGE IV PRN (15:00)
[2020-06-16] MEDS: LISINOPRIL 20 MG TAB PO SCH (17:36)
[2020-06-16] MEDS: INSULIN LISPRO 100 UNIT/ML SUB-Q SCH (19:47)
[2020-06-17 06:47] LABS: Basophils % (Auto) 0.7 % (0.0-1.8); Eosinophils # (Auto) 0.3 K/mm3 (0.0-0.4); Eosinophils % (Auto) 5.5 % (0.0-4.3); Hematocrit 36.7 % (30.3-42.9); Hemoglobin 12.4 gm/dl (10.1-14.3); Lymphocytes # (Auto) 1.3 K/mm3 (1.2-5.4); Lymphocytes % (Auto) 24.4 % (13.4-35.0); Mean Corpuscular HGB Conc 34 % (30-34); Mean Corpuscular Volume 92 fl (79-97); Monocytes # (Auto) 0.5 K/mm3 (0.0-0.8); Monocytes % (Auto) 10.1 % (0.0-7.3); Platelet Count 123 K/mm3 (140-440); Red Cell Distribution Width 13.3 % (13.2-15.2)
[2020-06-17 07:07] LABS: Creatine Kinase MB 3.7 ng/mL (0.0-4.0)
[2020-06-17 07:13] LABS: BUN/Creatinine Ratio 16; Blood Urea Nitrogen 13 mg/dL (7-17); Hemolysis Index 10
--- NOTE | 2020-06-17 08:22 | XRay Report ---
XR chest 1V ap INDICATION / CLINICAL INFORMATION: post pci COMPARISON: May 14, 2019 FINDINGS: SUPPORT DEVICES: None. HEART / MEDIASTINUM: No significant abnormality. LUNGS / PLEURA: Low lung volumes. Lungs are clear. Costophrenic sulci are sharp. No pneumothorax. ADDITIONAL FINDINGS: No significant additional findings. IMPRESSION: 1. No acute findings. Signer Name: Orlando Ramirez MD Signed: 06/17/2020 8:17 AM Workstation Name: [id number]
[2020-06-17] MEDS: INSULIN LISPRO 100 UNIT/ML SUB-Q SCH (09:15)
[2020-06-17] MEDS ORDERED: amLODIPine 5 MG TAB PO SCH (10:00)
[2020-06-17] MEDS ORDERED: METOPROLOL SUCCINATE XL 25 MG TAB PO SCH (10:00)
[2020-06-17] MEDS ORDERED: CLOPIDOGREL 75 MG TAB PO SCH (10:00)
[2020-06-17] MEDS ORDERED: ASPIRIN 81 MG TAB CHEW PO SCH (10:00)
--- NOTE | 2020-06-17 10:07 | Short Stay Summary ---
Short Stay Documentation Date of service: 06/17/20 - History H&P: obtained from office Past Medical History: diabetes, hypertension, hyperlipidemia Past Surgical History: No surgical history Social history: no significant social history - Allergies and Medications Current Medications: Allergies shrimp Allergy (Verified 06/16/20 08:16) Unknown Pt states she had no reaction when she eats shrimp. Was told she was allergic during allergy test metformin HCl [From Glucophage] Adverse Reaction (Verified 06/04/16 08:56) HALLUCINATIONS Home Medications Medication Instructions Recorded Confirmed Last Taken Type Insulin Aspart (Nf) [Novolog 13 unit SQ AC 09/25/16 06/16/20 06/15/20 History Flexpen] 13 units amLODIPine [Norvasc] 2.5 mg PO DAILY 09/25/16 06/16/20 06/15/20 History 2.5mg lisinopriL [Zestril] 40 mg PO QDAY 09/25/16 06/16/20 06/15/20 History 40 mg Aspirin 325 mg PO DAILY 06/16/20 06/16/20 06/15/20 History 325 mg Empagliflozin (Nf) [Jardiance (Nf)] 1 tab PO QAM 06/16/20 06/16/20 06/15/20 History 10 mg Insulin Glargine,Hum.rec.anlog 40 units SQ QHS 06/16/20 06/16/20 06/15/20 History [Basaglar Kwikpen U-100] 40 units Insulin NPH Human Isophane 13 units SQ AC 06/16/20 06/16/20 06/15/20 History [Novolin N Flexpen] 13 units Levocetirizine Dihydrochloride 5 mg PO DAILY 06/16/20 06/16/20 06/15/20 History [Xyzal] 5 mg Metoprolol Xl [Metoprolol 25 mg PO DAILY 06/16/20 06/16/20 06/15/20 History SUCCINATE ER TAB] 25 mg Rosuvastatin Calcium [Crestor] 40 mg PO HS 06/16/20 06/16/20 06/15/20 History 40 mg Vit D3-Vit K/Berberine/Hops 10 mg PO DAILY 06/16/20 06/16/20 06/15/20 History [Ostera Tablet] 10 mg hydrOXYzine HCL [Atarax] 25 mg PO HS 06/16/20 06/16/20 06/15/20 History 25 mg Active Medications Hydrocodone Bitart/Acetaminophen (Hydrocodone/Acetaminophen 5-325 Mg Tab) 1 each PO Q6H PRN PRN Reason: Pain, Moderate (4-6) Amlodipine Besylate (Amlodipine 5 Mg Tab) 2.5 mg PO DAILY [facility] Aspirin (Aspirin 81 Mg Tab Chew) 81 mg PO QDAY [facility] Clopidogrel Bisulfate (Clopidogrel 75 Mg Tab) 75 mg PO QDAY [facility] Dextrose (Dextrose 50% In Water (25gm) 50 Ml Syringe) 50 ml IV Q30MIN PRN; Protocol PRN Reason: Hypoglycemia Insulin Human Lispro (Insulin Lispro 100 Unit/Ml) 0 unit SUB-Q ACHS [facility]; Protocol Last Admin: 06/17/20 09:15 Dose: Not Given Documented by: Lisinopril (Lisinopril 20 Mg Tab) 40 mg PO QDAY [facility] Last Admin: 06/16/20 17:36 Dose: 40 mg Documented by: Metoprolol Succinate (Metoprolol Succinate Xl 25 Mg Tab) 25 mg PO DAILY [facility] - Physical exam General appearance: no acute distress Integumentary: no rash, no growths, no abnormal pigmentation, other (right radial C site c/d/i, no bleeding or hematoma) HEENT: Atraumatic Lungs: Clear to auscultation Heart: Regular rate, Normal S1, Normal S2 Gastrointestinal: normal, normoactive bowel sounds Extremities: no ischemia, pulses intact, pulses symmetrical Neurological: Normal gait - Brief post op/procedure progress note Date of procedure: 06/16/20 Pre-op diagnosis: abnormal stress test Post-op diagnosis: other (CAD) Procedure: [facility] with PCI - see dictated cath report Anesthesia: local Estimated blood loss: none Condition: stable - Disposition Condition at discharge: Good Disposition: DC-01 TO HOME OR SELFCARE - Discharge Diagnoses (1) CAD (coronary artery disease) Status: Chronic (2) Stented coronary artery Status: Chronic (3) HTN (hypertension) Status: Chronic (4) Diabetes Status: Chronic (5) Hyperlipidemia Status: Chronic Qualifiers: Hyperlipidemia type: mixed hyperlipidemia Qualified Code(s): E78.2 - Mixed hyperlipidemia Short Stay Discharge Plan Activity: advance as tolerated Diet: low fat, low cholesterol, low salt, diabetic Wound: open to air, keep clean and dry, per your surgeon's advice Follow up with: MIA FAIR MD [Primary Care Provider] - 7 Days ARIADNA PEREZ MD [Staff Physician] - 7 Days ([place] office, 06/22/2020 @ 11:30AM) Prescriptions: Clopidogrel [Plavix] 75 mg PO QDAY #90 tablet
[2020-06-17] MEDS: LISINOPRIL 20 MG TAB PO SCH (10:42)
[2020-06-17 12:16] VITALS: BP 131/73
== END 2020-06-17 14:35 | disposition home or self-care (01) ==
LOC: CATHLABREC 07:08 → 4A 12:24
PROVIDERS: ADMIT Internal Medicine; ATTEND Internal Medicine
DX: I25.10 Atherosclerotic heart disease of native coronary artery without angina pectoris (principal); I10 Essential (primary) hypertension; E11.9 Type 2 diabetes mellitus without complications; E78.2 Mixed hyperlipidemia; Z79.4 Long term (current) use of insulin; Z79.82 Long term (current) use of aspirin; Z95.1 Presence of aortocoronary bypass graft; Z86.73 Personal history of transient ischemic attack (TIA), and cerebral infarction without residual deficits; Z98.49 Cataract extraction status, unspecified eye; Z79.899 Other long term (current) drug therapy
CPT/HCPCS: 36415; 71045; 80048; 82550; 82553; 82962; 84484; 85025; 85347; 85610; 85730; 92978; 93005; 93458; C1725; C1753; C1769; C1874; C1887; C1894; C9600; G0378; J1644; J2250; J3010; J7040; 92928; J0461; Q9967

== ENCOUNTER 2020-07-05 06:41 | Observation (INO) | payer MEDICARE ==
[2020-07-05 07:23] LABS: Basophils % (Auto) 0.7 % (0.0-1.8); Eosinophils # (Auto) 0.4 K/mm3 (0.0-0.4); Eosinophils % (Auto) 5.7 % (0.0-4.3); Hematocrit 37.3 % (30.3-42.9); Hemoglobin 12.6 gm/dl (10.1-14.3); Lymphocytes # (Auto) 1.8 K/mm3 (1.2-5.4); Lymphocytes % (Auto) 26.3 % (13.4-35.0); Mean Corpuscular HGB Conc 34 % (30-34); Mean Corpuscular Volume 92 fl (79-97); Monocytes # (Auto) 0.7 K/mm3 (0.0-0.8); Monocytes % (Auto) 9.5 % (0.0-7.3); Platelet Count 150 K/mm3 (140-440); Red Blood Count 4.06 M/mm3 (3.65-5.03); Red Cell Distribution Width 13.9 % (13.2-15.2)
[2020-07-05] MEDS ORDERED: ASPIRIN EC 81 MG TAB PO ONE (07:24)
[2020-07-05] MEDS ORDERED: CLOPIDOGREL 75 MG TAB ONE (07:27)
[2020-07-05 07:33] LABS: INR 1.05 (0.87-1.13)
[2020-07-05] MEDS: CLOPIDOGREL 75 MG TAB PO SCH ×2 (07:33→17:46)
[2020-07-05 07:35] LABS: BUN/Creatinine Ratio 26; Blood Urea Nitrogen 23 mg/dL (7-17); Calcium 9.1 mg/dL (8.4-10.2); Hemolysis Index 0
[2020-07-05] MEDS: ASPIRIN EC 81 MG TAB PO SCH (07:35)
[2020-07-05] MEDS ORDERED: SODIUM CHLORIDE 0.9% 500 ML 500 ML IV SCH (08:00)
[2020-07-05] MEDS ORDERED: HEPARIN/NS 5000 UNIT/500ML 1,000 ML IR ONE (08:26)
[2020-07-05] MEDS ORDERED: LIDOCAINE (1%) 10 MG/1 ML VIAL 20 ML MDV ONE (08:27)
[2020-07-05] MEDS ORDERED: VERAPAMIL 5 MG/2 ML INJ ONE (08:27)
[2020-07-05] MEDS ORDERED: MIDAZOLAM 2 MG/2 ML INJ ONE (08:27)
[2020-07-05] MEDS ORDERED: NITROGLYCERIN SYRINGE 3 ML ONE (08:28)
[2020-07-05] MEDS: fentaNYL 100 MCG/2 ML INJ ONE ×2 (08:52→09:31)
[2020-07-05] MEDS: HEPARIN 10,000 UNITS/10 ML VIAL ONE ×2 (08:54→09:02)
[2020-07-05] MEDS ORDERED: CLOPIDOGREL 300 MG TAB ONE (09:22)
[2020-07-05] MEDS ORDERED: HYDROcodone/ACETAMINOPHEN 5-325 MG TAB PO PRN (10:00)
[2020-07-05] MEDS ORDERED: ASPIRIN 81 MG TAB CHEW PO SCH (10:00)
[2020-07-05] MEDS ORDERED: DEXTROSE 50% IN WATER (25GM) 50 ML SYRINGE IV PRN (10:00)
[2020-07-05] MEDS: INSULIN LISPRO 100 UNIT/ML SUB-Q SCH ×3 (11:14→23:22)
[2020-07-05] MEDS: METOPROLOL SUCCINATE XL 25 MG TAB PO SCH (12:55)
--- NOTE | 2020-07-05 13:20 | Cardiac Catherization Report ---
LEFT HEART CATHETERIZATION/PERCUTANEOUS CORONARY INTERVENTION/INTRAVASCULAR ULTRASOUND REPORT CLINICAL INFORMATION: This is a 75-year-old -[place] female with diabetes, hypertension, coronary artery disease, had PCI of the RCA and PDA done 3 weeks ago, presents with staged PCI of the LAD for unstable angina. Procedure was done with moderate sedation started at 0853 hours, finished at 0928 hours, which is 35 minutes of moderate sedation. Procedure was done via the right radial artery, sterile technique, local anesthesia, 6-Senegalese radial sheath inserted. LV gram done shows normal LV function in STATELESS and CRISOSTOMO view. LVEDP at 13 mmHg, LV is 120_. Aortic is 120/63. No gradient across the aortic valve on pullback. RCA engaged with JR4 catheter, proximal stent is patent, medium caliber vessel, proximal stent patent, mid 20%, distal patent. PLV small, PDA stent patent, so PCI of the LAD engaged with an EBU 3.5 guiding catheter. Angiogram showed left main patent, LAD proximal 20%, mid diffuse focal areas of 80-95%. Diagonal 1 small caliber vessel, patent. Diagonal 2 small caliber vessel, patent. Circumflex is a large caliber vessel, patent. OM1 and OM2 medium to large caliber patent, moderate tortuosity, wired the distal LAD with short [place] wire. Predilated with a 2.5 x 12 x 15 atmospheres x 3 inflations. Intravascular ultrasound showed calcified vessel, but proximal reference vessel 3.5 distal 3.25. Stented the mid LAD across diagonal 2 with a drug-eluting Resolute 3.0 x 26 mm inflated at 15 atmospheres. Post-dilated the proximal mid portion of stent with a noncompliant 3.5 x 12 mm balloon at 15 atmospheres x 2 inflations. Repeat intravascular ultrasound showed stent opposed and expanded, but calcification noted in the LAD. run through coronary wire was removed. Multiple angiograms, continued DELMI 3 flow, no dissection, perforation, or embolization noted. A 6-Senegalese guiding catheter taken out. A 6-[place]egalese sheath was discontinued. Radial band applied. No hematoma, no bleeding. SUMMARY: 1. Successful percutaneous coronary intervention of the mid left anterior descending with a drug-eluting Resolute [place] 3.0 x 26 mm, postdilated with 3.5 x 12 x 2 inflations at 15 atmospheres. 2. Angiogram, left main patent, left anterior descending proximal 20%, circumflex large patent. OM1 and OM2 medium to large caliber patent. Right coronary artery proximal stent patent. PDA stent patent, mid 20%, distal patent, normal left ventricular function. 3. Post-percutaneous coronary intervention care. Continue aspirin and Plavix. Discussed this with the patient and the patient's family in detail. JOB# [id number] BALJIT/RICO [place]
[2020-07-05] MEDS: amLODIPine 5 MG TAB PO SCH (17:46)
[2020-07-05] MEDS: LISINOPRIL 20 MG TAB PO SCH (17:47)
[2020-07-05] MEDS ORDERED: NON-FORMULARY EACH (Rosuvastatin Calcium [Crestor] 40 MG Tablet) PO SCH (22:00)
[2020-07-06 06:41] LABS: Basophils % (Auto) 0.7 % (0.0-1.8); Eosinophils # (Auto) 0.3 K/mm3 (0.0-0.4); Eosinophils % (Auto) 7.2 % (0.0-4.3); Hematocrit 33.7 % (30.3-42.9); Hemoglobin 11.4 gm/dl (10.1-14.3); Lymphocytes % (Auto) 21.1 % (13.4-35.0); Mean Corpuscular HGB Conc 34 % (30-34); Mean Corpuscular Volume 92 fl (79-97); Monocytes # (Auto) 0.5 K/mm3 (0.0-0.8); Monocytes % (Auto) 10.1 % (0.0-7.3); Platelet Count 108 K/mm3 (140-440); Red Blood Count 3.65 M/mm3 (3.65-5.03); Red Cell Distribution Width 13.9 % (13.2-15.2)
[2020-07-06 07:00] LABS: Creatine Kinase MB 4.4 ng/mL (0.0-4.0)
[2020-07-06 07:04] LABS: Blood Urea Nitrogen 14 mg/dL (7-17); Calcium 8.7 mg/dL (8.4-10.2); Hemolysis Index 5
[2020-07-06 07:12] LABS: BUN/Creatinine Ratio 20
--- NOTE | 2020-07-06 08:24 | XRay Report ---
CHEST 1 VIEW 07/06/2020 6:54 AM INDICATION / CLINICAL INFORMATION: post pci. COMPARISON: 06/17/2019 FINDINGS: SUPPORT DEVICES: None. HEART / MEDIASTINUM: No significant abnormality. LUNGS / PLEURA: There are low lung volumes bilaterally. No focal infiltrate is seen. No pneumothorax. ADDITIONAL FINDINGS: No significant additional findings. IMPRESSION: 1. No acute findings. Signer Name: Reggie Moses MD Signed: 07/06/2020 8:20 AM Workstation Name: [employer]
[2020-07-06] MEDS: ASPIRIN EC 81 MG TAB PO SCH (10:07)
[2020-07-06] MEDS: CLOPIDOGREL 75 MG TAB PO SCH (10:07)
[2020-07-06] MEDS: METOPROLOL SUCCINATE XL 25 MG TAB PO SCH (10:07)
[2020-07-06] MEDS: LISINOPRIL 20 MG TAB PO SCH (10:07)
[2020-07-06] MEDS: amLODIPine 5 MG TAB PO SCH (10:07)
[2020-07-06] MEDS: INSULIN LISPRO 100 UNIT/ML SUB-Q SCH (10:08)
--- NOTE | 2020-07-06 10:37 | Short Stay Summary ---
Short Stay Documentation Date of service: 07/06/20 Narrative H&P: HPI per office note - History H&P: obtained from office - Allergies and Medications Current Medications: Allergies shrimp Allergy (Verified 06/16/20 08:16) Unknown Pt states she had no reaction when she eats shrimp. Was told she was allergic during allergy test metformin HCl [From Glucophage] Adverse Reaction (Verified 06/04/16 08:56) HALLUCINATIONS Home Medications Medication Instructions Recorded Confirmed Last Taken Type amLODIPine 2.5 mg PO DAILY 09/25/16 07/05/20 07/04/20 History 2.5mg lisinopriL [Zestril TAB] 40 mg PO QDAY 09/25/16 07/05/20 07/04/20 History 40 mg Empagliflozin (Nf) [Jardiance (Nf)] 1 tab PO QAM 06/16/20 07/05/20 07/04/20 History 1 tab Insulin Glargine,Hum.rec.anlog 40 units SQ QHS 06/16/20 07/05/20 07/04/20 History [Basaglar Kwikpen U-100] 40 units Insulin NPH Human Isophane 13 units SQ AC 06/16/20 07/05/20 07/04/20 History [Novolin N Flexpen] 13 units Levocetirizine Dihydrochloride 5 mg PO DAILY 06/16/20 07/05/20 07/04/20 History [Xyzal] 5 mg Metoprolol Xl [Metoprolol 25 mg PO DAILY 06/16/20 07/05/20 07/04/20 History SUCCINATE ER TAB] 25 mg Rosuvastatin Calcium [Crestor] 40 mg PO HS 06/16/20 07/05/20 07/04/20 History 40 mg Vit D3-Vit K/Berberine/Hops 10 mg PO DAILY 06/16/20 07/05/20 07/04/20 History [Ostera Tablet] 10 mg hydrOXYzine HCL [Atarax] 25 mg PO DAILY 06/16/20 07/05/20 07/04/20 History 25 mg Aspirin [Aspirin BABY CHEW TAB] 81 mg PO QDAY tab.chew 06/17/20 07/05/20 07/05/20 07:25 Rx Clopidogrel [Plavix] 75 mg PO QDAY #90 tablet 06/17/20 07/05/2021 07:25 Rx 75 mg Active Medications Hydrocodone Bitart/Acetaminophen (Hydrocodone/Acetaminophen 5-325 Mg Tab) 1 each PO Q6H PRN PRN Reason: Pain, Moderate (4-6) Last Admin: 07/05/20 11:05 Dose: 1 each Documented by: Amlodipine Besylate (Amlodipine 5 Mg Tab) 2.5 mg PO DAILY [facility] Last Admin: 07/06/20 10:07 Dose: 2.5 mg Documented by: Aspirin (Aspirin Ec 81 Mg Tab) 81 mg PO QDAY [facility] Last Admin: 07/06/20 10:07 Dose: 81 mg Documented by: Atorvastatin Calcium (Atorvastatin 40 Mg Tab) 40 mg PO QHS [facility] Last Admin: 07/05/20 23:24 Dose: 40 mg Documented by: Clopidogrel Bisulfate (Clopidogrel 75 Mg Tab) 75 mg PO QDAY [facility] Last Admin: 07/06/20 10:07 Dose: 75 mg Documented by: Dextrose (Dextrose 50% In Water (25gm) 50 Ml Syringe) 50 ml IV Q30MIN PRN; Protocol PRN Reason: Hypoglycemia Insulin Human Lispro (Insulin Lispro 100 Unit/Ml) 0 unit SUB-Q ACHS [facility]; Protocol Last Admin: 07/06/20 10:08 Dose: Not Given Documented by: Lisinopril (Lisinopril 20 Mg Tab) 40 mg PO QDAY [facility] Last Admin: 07/06/20 10:07 Dose: 40 mg Documented by: Metoprolol Succinate (Metoprolol Succinate Xl 25 Mg Tab) 25 mg PO DAILY [facility] Last Admin: 07/06/20 10:07 Dose: 25 mg Documented by: - Physical exam General appearance: no acute distress Integumentary: no rash, no growths, no abnormal pigmentation, other (RRA [facility] site, C/D/I no bleeding or hematoma noted) Lungs: Clear to auscultation Heart: Regular rate, Normal S1, Normal S2 Gastrointestinal: normal, normoactive bowel sounds Extremities: no ischemia, pulses intact, pulses symmetrical Neurological: Normal gait, Normal speech, Strength at 5/5 X4 ext - Brief post op/procedure progress note Date of procedure: 07/05/20 Pre-op diagnosis: CAD Post-op diagnosis: same Procedure: [facility] with PCI- please see dictated cath report. Anesthesia: local Estimated blood loss: none Condition: stable - Disposition Condition at discharge: Good Disposition: DC-01 TO HOME OR SELFCARE - Discharge Diagnoses (1) CAD (coronary artery disease) Status: Chronic (2) Stented coronary artery Status: Chronic (3) Diabetes Status: Chronic (4) HTN (hypertension) Status: Chronic (5) Hyperlipidemia Status: Chronic Qualifiers: Hyperlipidemia type: mixed hyperlipidemia Qualified Code(s): E78.2 - Mixed hyperlipidemia Short Stay Discharge Plan Activity: advance as tolerated Diet: low fat, low cholesterol, low salt, diabetic Wound: open to air, keep clean and dry, per your surgeon's advice Follow up with: MIA FAIR MD [Primary Care Provider] - 7 Days ARIADNA PEREZ MD [Staff Physician] - 7 Days (f/u scheduled 07/20/2020 @ 08:45AM in our office at [place])
[2020-07-06 13:56] VITALS: BP 120/61
== END 2020-07-06 13:30 | disposition home or self-care (01) ==
LOC: CATHLABREC 06:41 → 4A 09:50
PROVIDERS: ADMIT Internal Medicine; ATTEND Internal Medicine
DX: I25.10 Atherosclerotic heart disease of native coronary artery without angina pectoris (principal); R94.39 Abnormal result of other cardiovascular function study; I10 Essential (primary) hypertension; E11.9 Type 2 diabetes mellitus without complications; E78.5 Hyperlipidemia, unspecified; Z95.1 Presence of aortocoronary bypass graft; Z79.4 Long term (current) use of insulin; Z79.82 Long term (current) use of aspirin
CPT/HCPCS: 36415; 71045; 80048; 82550; 82553; 82962; 84484; 85025; 85347; 85610; 92978; 93005; 93458; A9270; C1725; C1753; C1769; C1874; C1887; C9600; G0378; J1644; J2250; J3010; J7040; 92928; Q9967

== ENCOUNTER 2021-12-25 08:30 | Emergency (ER) | payer MEDICARE ==
[2021-12-25] MEDS ORDERED: ONDANSETRON 4 MG/2 ML INJ IV ONE (09:13)
[2021-12-25] MEDS ORDERED: SODIUM CHLORIDE 0.9% 1000 ML 1,000 ML IV ONE (09:13)
[2021-12-25 10:25] LABS: INR 1.14 (0.87-1.13)
[2021-12-25 10:28] LABS: Hematocrit 42.1 % (30.3-42.9); Hemoglobin 13.8 gm/dl (10.1-14.3); Mean Corpuscular HGB Conc 33 % (30-34); Mean Corpuscular Volume 92 fl (79-97); Platelet Count 113 K/mm3 (140-440); Red Blood Count 4.58 M/mm3 (3.65-5.03); Red Cell Distribution Width 13.3 % (13.2-15.2)
[2021-12-25 10:46] LABS: Basophils % (Manual) 0 % (0.0-1.8); Large Platelets Few; Platelet Estimate Consistent w Auto; Target Cells Rare; Total Cells Counted 100
--- NOTE | 2021-12-25 10:55 | XRay Report ---
CHEST 1 VIEW 12/25/2021 9:37 AM INDICATION / CLINICAL INFORMATION: Dyspnea. COMPARISON: 07/06/2020 FINDINGS: SUPPORT DEVICES: None. HEART / MEDIASTINUM: No significant abnormality. LUNGS / PLEURA: No significant pulmonary or pleural abnormality. No pneumothorax. ADDITIONAL FINDINGS: None IMPRESSION: 1. No acute chest process. Signer Name: Cortes Casiano MD Signed: 12/25/2021 10:50 AM Workstation Name: [email or web address]
[2021-12-25 10:57] LABS: Albumin 3.9 g/dL (3.9-5); Bilirubin,Direct 0.3 mg/dL (0-0.2)
--- NOTE | 2021-12-25 12:01 | Cat Scan Report ---
CT ABDOMEN AND PELVIS WITHOUT CONTRAST INDICATION / CLINICAL INFORMATION: Unspecified abdominal pain. TECHNIQUE: Axial CT images were obtained through the abdomen and pelvis without IV contrast. All CT scans at [facility] location are performed using CT dose reduction for ALARA by means of automated exposure control. COMPARISON: CT abdomen and pelvis with contrast from 06/04/2016. FINDINGS: LOWER CHEST: There is mild bibasilar atelectasis versus scarring without other acute findings. LIVER: There is mild steatosis without other significant abnormalities. GALLBLADDER: Cholelithiasis is seen without evidence of acute cholecystitis BILE DUCTS: No significant abnormality. PANCREAS: Nonspecific calcification is seen in the pancreatic head without other significant abnormal ities. SPLEEN: No significant abnormality. ADRENALS: No significant abnormality of the left adrenal gland. There is a nonspecific lateral limb r ight adrenal nodule measuring up to 1.7 cm, previously 2.4 cm. RIGHT KIDNEY/URETER: There is an unchanged lower pole parapelvic cyst measuring up to 1.4 cm. No othe r significant abnormality. LEFT KIDNEY/URETER: There is an unchanged nonobstructive midpole stone measuring 3 mm. Multiple parap elvic and cortical cysts are unchanged, measuring up to 1.7 cm anteriorly along the mid pole. No othe r significant abnormality. STOMACH/SMALL BOWEL: No significant abnormality. COLON: No significant abnormality. APPENDIX: No significant abnormality. PERITONEUM: No free fluid. No free air. No fluid collection. LYMPH NODES: No significant adenopathy. VASCULATURE: There is severe generalized atherosclerosis. The aorta is normal in caliber. URINARY BLADDER: No significant abnormality. REPRODUCTIVE ORGANS: No significant abnormality. Prior hysterectomy. ADDITIONAL FINDINGS: None. BONES: No acute findings. The bones are demineralized with mild spondylosis. Degenerative changes are also seen throughout the pelvis. IMPRESSION: 1. No acute findings to explain the patient's pain 2. Smaller right adrenal nodule is most likely benign and represents an adenoma. 3. Additional findings as above. Signer Name: Cruz Vincent MD Signed: 12/25/2021 11:57 AM Workstation Name: [employer]
--- NOTE | 2021-12-25 13:18 | Emergency Department Report ---
ED Abdominal Pain HPI - General Chief Complaint: Abdominal Pain Stated Complaint: STOMACH PAIN ON RIGHT SIDE PUI?: No Time Seen by Provider: 12/25/21 09:13 Source: patient Mode of arrival: Ambulatory Limitations: No Limitations - History of Present Illness Initial Comments: pt reports right side abd pain and nausea, and feeling "shaky" since saturday MD Complaint: abdominal pain, flank pain -: Gradual, hour(s) Location: R flank Radiation: none Severity scale (0 -10): 7 Quality: aching Consistency: intermittent Improves With: nothing Worsens With: nothing - Related Data Home Medications Medication Instructions Recorded Confirmed Last Taken amLODIPine 2.5 mg PO DAILY 09/25/16 07/05/20 07/04/20 2.5mg lisinopriL [Zestril TAB] 40 mg PO QDAY 09/25/16 07/05/20 07/04/20 40 mg Empagliflozin (Nf) [Jardiance (Nf)] 1 tab PO QAM 06/16/20 07/05/20 07/04/20 1 tab Insulin Glargine,Hum.rec.anlog 40 units SQ QHS 06/16/20 07/05/20 07/04/20 [Basaglar Kwikpen U-100] 40 units Insulin NPH Human Isophane 13 units SQ AC 06/16/20 07/05/20 07/04/20 [Novolin N Flexpen] 13 units Levocetirizine Dihydrochloride 5 mg PO DAILY 06/16/20 07/05/20 07/04/20 [Xyzal] 5 mg Metoprolol Xl [Metoprolol 25 mg PO DAILY 06/16/20 07/05/20 07/04/20 SUCCINATE ER TAB] 25 mg Rosuvastatin Calcium [Crestor] 40 mg PO HS 06/16/20 07/05/20 07/04/20 40 mg Vit D3-Vit K/Berberine/Hops 10 mg PO DAILY 06/16/20 07/05/20 07/04/20 [Ostera Tablet] 10 mg hydrOXYzine HCL [Atarax] 25 mg PO DAILY 06/16/20 07/05/20 07/04/20 25 mg Previous Rx's Medication Instructions Recorded Last Taken Type Aspirin [Aspirin BABY CHEW TAB] 81 mg PO QDAY tab.chew 06/17/20 07/05/20 07:25 Rx Clopidogrel [Plavix] 75 mg PO QDAY #90 tablet 06/17/20 07/05/20 07:25 Rx 75 mg Aspirin EC [Halfprin EC] 81 mg PO QDAY tablet 07/06/20 Unknown Rx Clopidogrel [Plavix] 75 mg PO QDAY tablet 07/06/20 Unknown Rx Allergies Allergy/AdvReac Type Severity Reaction Status Date / Time shrimp Allergy Unknown Verified 12/25/21 08:48 metformin HCl AdvReac HALLUCINATI Verified 12/25/21 08:48 [From Glucophage] ONS ED Review of Systems ROS: Stated complaint: STOMACH PAIN ON RIGHT SIDE Other details as noted in HPI Constitutional: denies: chills, fever Eyes: denies: eye pain, eye discharge, vision change ENT: denies: ear pain, throat pain Respiratory: denies: cough, shortness of breath, wheezing Cardiovascular: denies: chest pain, palpitations Endocrine: no symptoms reported Gastrointestinal: denies: abdominal pain, nausea, diarrhea Genitourinary: denies: urgency, dysuria, discharge Musculoskeletal: denies: back pain, joint swelling, arthralgia Skin: denies: rash, lesions Neurological: denies: headache, weakness, paresthesias Psychiatric: denies: anxiety, depression Hematological/Lymphatic: denies: easy bleeding, easy bruising ED Past Medical Hx - Past Medical History Hx Hypertension: Yes Hx CVA: Yes (CVA 01-28-13) Hx Diabetes: Yes Hx GERD: Yes Hx Arthritis: Yes Hx Kidney Stones: Yes Hx Asthma: Yes - Surgical History Additional Surgical History: . HERNIA REPAIR X 2. HYSTERECTOMY - Social History Smoking Status: Never Smoker Substance Use Type: None - Medications Home Medications: Home Medications Medication Instructions Recorded Confirmed Last Taken Type amLODIPine 2.5 mg PO DAILY 09/25/16 07/05/20 07/04/20 History 2.5mg lisinopriL [Zestril TAB] 40 mg PO QDAY 09/25/16 07/05/20 07/04/20 History 40 mg Empagliflozin (Nf) [Jardiance (Nf)] 1 tab PO QAM 06/16/20 07/05/20 07/04/20 History 1 tab Insulin Glargine,Hum.rec.anlog 40 units SQ QHS 06/16/20 07/05/20 07/04/20 History [Basaglar Kwikpen U-100] 40 units Insulin NPH Human Isophane 13 units SQ AC 06/16/20 07/05/20 07/04/20 History [Novolin N Flexpen] 13 units Levocetirizine Dihydrochloride 5 mg PO DAILY 06/16/20 07/05/20 07/04/20 History [Xyzal] 5 mg Metoprolol Xl [Metoprolol 25 mg PO DAILY 06/16/20 07/05/20 07/04/20 History SUCCINATE ER TAB] 25 mg Rosuvastatin Calcium [Crestor] 40 mg PO HS 06/16/20 07/05/20 07/04/20 History 40 mg Vit D3-Vit K/Berberine/Hops 10 mg PO DAILY 06/16/20 07/05/20 07/04/20 History [Ostera Tablet] 10 mg hydrOXYzine HCL [Atarax] 25 mg PO DAILY 06/16/20 07/05/20 07/04/20 History 25 mg Aspirin [Aspirin BABY CHEW TAB] 81 mg PO QDAY tab.chew 06/17/20 07/05/20 07/05/20 07:25 Rx Clopidogrel [Plavix] 75 mg PO QDAY #90 tablet 06/17/20 07/05/20 07/05/20 07:25 Rx 75 mg Aspirin EC [Halfprin EC] 81 mg PO QDAY tablet 07/06/20 Unknown Rx Clopidogrel [Plavix] 75 mg PO QDAY tablet 07/06/20 Unknown Rx ED Physical Exam - General Limitations: No Limitations General appearance: alert, in no apparent distress - Head Head exam: Present: atraumatic, normocephalic - Eye Eye exam: Present: normal appearance - ENT ENT exam: Present: mucous membranes moist - Neck Neck exam: Present: normal inspection - Respiratory Respiratory exam: Present: normal lung sounds bilaterally. Absent: respiratory distress - Cardiovascular Cardiovascular Exam: Present: regular rate, normal rhythm. Absent: systolic murmur, diastolic murmur, rubs, gallop - GI/Abdominal GI/Abdominal exam: Present: tenderness, normal bowel sounds - Extremities Exam Extremities exam: Present: normal inspection - Back Exam Back exam: Present: normal inspection - Neurological Exam Neurological exam: Present: alert, oriented X3 - Psychiatric Psychiatric exam: Present: normal affect, normal mood - Skin Skin exam: Present: warm, dry, intact, normal color. Absent: rash ED Course Vital Signs 12/25/21 12/25/21 12/25/21 08:46 09:15 09:22 Temperature 99.6 F 99.4 F Pulse Rate 79 90 94 H Respiratory 20 16 20 Rate Blood Pressure 106/55 Blood Pressure 97/48 106/55 [Right] O2 Sat by Pulse 98 98 Oximetry 12/25/21 12/25/21 12/25/21 09:30 09:46 10:00 Temperature Pulse Rate 86 83 80 Respiratory 15 14 12 Rate Blood Pressure 106/55 110/58 110/58 Blood Pressure [Right] O2 Sat by Pulse 97 97 98 Oximetry 12/25/21 12/25/21 12/25/21 10:16 10:30 10:46 Temperature Pulse Rate 78 77 81 Respiratory 11 L 14 12 Rate Blood Pressure 110/58 110/58 108/54 Blood Pressure [Right] O2 Sat by Pulse 97 96 97 Oximetry 12/25/21 12/25/21 11:00 11:16 Temperature Pulse Rate 80 79 Respiratory 20 16 Rate Blood Pressure 108/54 108/54 Blood Pressure [Right] O2 Sat by Pulse 93 94 Oximetry ED Medical Decision Making - Lab Data Result diagrams: 12/25/21 09:25 12/25/21 09:25 - EKG Data -: EKG Interpreted by Me EKG shows normal: sinus rhythm Rate: normal - EKG Data When compared to previous EKG there are: no significant change - Radiology Data Radiology results: report reviewed, image reviewed - Medical Decision Making work up showed elevated t bili, US and CT showed stones without cholecysitis Critical care attestation.: If time is entered above; I have spent that time in minutes in the direct care of this critically ill patient, excluding procedure time. ED Disposition Clinical Impression: Gall stones Disposition: 01 HOME / SELF CARE / HOMELESS Is pt being admited?: No Does the pt Need Aspirin: No Condition: Stable Instructions: Abdominal Pain (ED), Cholelithiasis, [id number] Referrals: PRIMARY CARE, [Primary Care Provider] - 3-5 Days COOPER VARELA MD [Staff Physician] - 3-5 Days
--- NOTE | 2021-12-25 13:19 | Ultrasound Report ---
LIMITED RUQ ABDOMINAL ULTRASOUND INDICATION: pain. COMPARISON: CT abdomen pelvis without contrast performed the same day. FINDINGS: Pancreas: Visualized portions show no significant abnormality. The tail is obscured. Abdominal Aorta: No significant abnormality. IVC: No significant abnormality. Liver: The liver measures 14.3 cm in length. The liver parenchyma is slightly echogenic consistent w ith mild fatty infiltration. Normal hepatopedal blood flow in the main portal vein. Gallbladder: A few tiny stones are identified in the gallbladder. No abnormal distention or wall thic kening. No pericholecystic fluid. Bile ducts: No significant abnormality. Common bile duct measures 2.7 mm. Right kidney: No significant abnormality visualized. Free fluid: None. Additional Findings: None. IMPRESSION: Mild hepatic steatosis. Cholelithiasis. No evidence for acute cholecystitis. Signer Name: Moose Palm Jr, MD Signed: 12/25/2021 1:15 PM Workstation Name: [id number]
[2021-12-25 13:33] VITALS: BP 136/72
--- NOTE | 2021-12-25 16:51 | Electrocardiograph Report ---
[facility] Test Date: 2021-12-25 Test Time: 09:32:35 Pat Name: CORRIE REYNA Department: Room: Gender: F Simonizer: 911 : 1945 Requested By: CELIA BREWER Order Number: [id number] Reading MD: Martin Corona Measurements Intervals [place] Rate: 86 P: 41 NV: 179 QRS: -24 QRSD: 69 T: 83 QT: 372 QTc: 445 Interpretive Statements Sinus rhythm ABNORMAL T WAVES, LATERAL LEADS No previous ECG available for comparison Electronically Signed On 12-25-2021 16:51:06 EDT by Martin Corona
== END 2021-12-25 13:32 | disposition home or self-care (01) ==
LOC: ED 08:30
DX: K80.80 Other cholelithiasis without obstruction (principal); I10 Essential (primary) hypertension; E11.9 Type 2 diabetes mellitus without complications; J45.909 Unspecified asthma, uncomplicated
CPT/HCPCS: 36415; 71045; 74176; 76705; 80048; 80076; 82550; 83690; 83880; 84484; 85007; 85025; 85610; 93005; 96361; 96374; 99284; J2405; J7030